=== PATIENT | male | born 1955 | race Caucasian/White ===

== ENCOUNTER 2020-05-04 15:48 | Outpatient (REF) | payer OTHER, SELFPAY ==
--- NOTE | ~2020-05-04 | US_ITS ---
EXAMINATION: US VENOUS WITH DOPPLER UPPER EXTREMITY, LEFT CLINICAL INFORMATION: Pain. History of previous DVT COMPARISON: Ultrasound of the left upper extremity February 2009 TECHNIQUE: Ultrasound of the upper extremity is performed using compression sonography and color and pulse Doppler flow with assessment of augmentation of flow. There is also imaging and Doppler assessment of the jugular and subclavian veins. Spectral analysis with color-flow imaging is performed. FINDINGS: Respiratory variation, normal compression, and augmented flow are noted throughout the upper extremity including the axillary, brachial, cubital, and radial and ulnar veins. There is normal flow in the internal jugular and subclavian veins. There is no visible deep or superficial thrombophlebitis. If the patient's symptoms progress, a followup ultrasound in 5 -7 days might be of value to exclude proximal propagation from a nonvisualized distal arm vein. US/US venous duplex UE LT IMPRESSION: No DVT demonstrated in the left upper extremity.
== END 2020-05-04 15:49 | disposition home or self-care (01) ==
LOC: HO.US 15:48
PROVIDERS: PCP Internal Medicine; Visit Provider Internal Medicine Medical Oncology
DX: I82.622 Acute embolism and thrombosis of deep veins of left upper extremity (principal)
CPT/HCPCS: 93971

== ENCOUNTER 2022-10-03 14:41 | Outpatient (REF) | payer OTHER, SELFPAY ==
--- NOTE | ~2022-10-03 | XR_ITS ---
EXAMINATION: XR KNEE, LEFT CLINICAL INFORMATION: Acute left knee pain COMPARISON: None available. TECHNIQUE: AP and lateral views of the left knee. FINDINGS: Mineralization is normal. There is no fracture or focal destructive lesion. Alignment is normal. There is mild joint space narrowing in the medial compartment without associated arthritic change. A small joint effusion cannot be excluded. There is evidence of edema in the superficial soft tissues surrounding the knee, and there are rounded soft tissue densities in the medial aspect which are nonspecific but could represent varicosities. XR/XR knee LT 2V IMPRESSION: No fracture or malalignment. A small joint effusion cannot be excluded. There is soft tissue edema and nodular densities projected in the medial soft tissue which could represent varicosities or, less likely, soft tissue masses. Clinical correlation is recommended.
== END 2022-10-03 14:42 | disposition home or self-care (01) ==
LOC: HO.XRAY 14:41
PROVIDERS: PCP Internal Medicine; Visit Provider Internal Medicine
DX: M25.562 Pain in left knee (principal)
CPT/HCPCS: 73560

== ENCOUNTER 2023-05-22 09:25 | Outpatient (REF) | payer OTHER, SELFPAY ==
--- NOTE | ~2023-05-22 | XR_ITS ---
EXAMINATION: XR LUMBOSACRAL SPINE CLINICAL INFORMATION: Low back pain COMPARISON: None available. TECHNIQUE: Three views of the lumbosacral spine. FINDINGS: There is slight rotatory curve of the lumbar spine, convex left. There 5 nonrib-bearing lumbar-type vertebral bodies there is mild compression of the superior endplate of L1. The height of the remainder of the lumbar vertebral bodies is well-maintained. There is mild disc space narrowing at L4-L5. The L5-S1 disc space is also narrow. There are large anterior bridging osteophytes at L2-L3 and L4-L5. There are large anterior osteophytes at L3-L4. Marked degenerative facet joint disease is seen at L4-L5 and L5-S1. Surgical clips are seen posteriorly in the left upper back. There is diffuse lucency of most of the sacrum which is of uncertain etiology. Question small lucencies within the L5 vertebral body. XR/XR lumbar spine 2-3V IMPRESSION: 1. Mild compression of the superior endplate of L1. 2. Degenerative disc disease and marked degenerative facet joint disease in the lower lumbar spine. 3. Diffuse lucency of most of the sacrum which is of uncertain etiology. Question small lucencies within the L5 vertebral body. MRI scan could be obtained for further evaluation.
[2023-05-22 15:04] LABS: Estimated Average Glucose 111 mg/dL; Hemoglobin A1C 149.0856 umol/L; Hemoglobin A1c % 5.5 % (<6.0)
[2023-05-22 15:38] LABS: Alanine Aminotransferase 46 U/L (0-40); Alkaline Phosphatase 88 U/L (39-117); Anion Gap 12 (12-20); Aspartate Amino Transferase 23 U/L (5-37); Bilirubin Total 0.4 mg/dL (0.0-1.0); Blood Urea Nitrogen 17 mg/dL (9-16); Calcium 9.1 mg/dL (8.4-10.2); Carbon Dioxide 25 mmol/L (22-29); Chloride 105 mmol/L (96-108); Cholesterol 179 mg/dL (<200); Estimated Glomerular Filt Rate > 60; Glucose Random 72 mg/dL (60-115); HDL Cholesterol 41 mg/dL (>40); LDL Cholesterol Calculated 87 mg/dL (<100); Potassium 4.1 mmol/L (3.3-5.1); Sodium 138 mmol/L (135-145); Total Protein 7.1 g/dL (6.5-8.0); Triglycerides 259 mg/dL (<150)
[2023-05-22 15:56] LABS: TSH reflex Free T4 1.29 uIU/mL (0.32-4.0); Vitamin D 25-OH Total 22.1 ng/mL (>30)
== END 2023-05-22 09:26 | disposition home or self-care (01) ==
LOC: HO.CHCLDS 09:25
PROVIDERS: PCP Internal Medicine; Visit Provider Internal Medicine
DX: E66.01 Morbid (severe) obesity due to excess calories (principal); Z68.37 Body mass index [BMI] 37.0-37.9, adult; E78.5 Hyperlipidemia, unspecified; I10 Essential (primary) hypertension; E55.9 Vitamin D deficiency, unspecified; M54.50 Low back pain, unspecified
CPT/HCPCS: 36415; 72100; 80053; 80061; 82306; 83036; 84443

== ENCOUNTER 2023-08-05 14:35 | Outpatient (AMB) | payer OTHER, SELFPAY ==
--- NOTE | 2023-08-05 14:52 | A.OFFVIS_ITS ---
Vital Signs 08/05/23 14:53 Height 6 ft 2 in Weight 273 lb 5.971 oz BMI 35.1 BP 132/78 Blood Pressure Location Lt brachial Position Sitting Pulse 99 Pulse Source Monitor Intake Visit Reasons: ECD/Dr Mahmood/ diastolic dysfunction Training Representative Required: Yes Training Representative Name: Accompanied by: Spouse Allergies No Known Allergies Allergy (Unverified 10/27/19 17:35) Medication List - Last Reconciled 08/05/23 by Juan Thompson MD amlodipine 5 mg PO DAILY levetiracetam ER 1,500 mg PO BID PRN eccohxffjciy-dphwootk-fuzlyl 1 tab PO DAILY omega-3 fatty acids 1,000 mg PO DAILY torsemide 10 mg PO DAILY vitamin K2 (MK-7) 90 mcg PO DAILY HPI Comments Details: Patient is here for consultation regarding possible congestive heart failure. No clear-cut diagnosis of previous coronary disease/myocardial infarction or cardiomyopathy. Apparently gets intermittent leg swelling and also some shortness of breath. Patient does not speak any [place] but is helping with interpretation. She signed the appropriate forms. Essentially, it seems he has had chronic shortness of breath and leg swelling but they are much more prominent recently. He is supposed to be taking torsemide but taking only half the recommended dose as he otherwise spends a lot of time in the bathroom. No anginal-type chest pains. He has a history of hairy cell leukemia but according to them, completely resolved at this time. [facility] Medical History (Updated 08/05/23 @ 15:29 by Juan Thompson MD) Polycythemia Hairy cell leukemia Fatty tumor Surgical History (Updated 05/10/20 @ 22:40 by Lien Gardner MD) Hx of appendectomy Family History (Updated 05/04/20 @ 15:11 by Sofya Delgado) Mother Hypertension Father Enlarged prostate Sister HX: breast cancer Sister Breast tumor Social History (Updated 08/05/23 @ 15:03 by Fe Moncada) Alcohol intake: current Alcohol intake frequency: holidays/special occasions only Alcohol type: beer Patient Tobacco Use Status: Never used Tobacco Review of Systems Const Denies weakness ENT Denies dizziness Card Denies chest pain, Denies chest pain with activity, Denies syncope, Denies rapid heart rate, Denies pedal edema, Denies edema, Denies leg edema, Denies lightheadedness, Denies palpitations, Reports dyspnea, Denies dyspnea on exertion and Denies orthopnea Resp Denies cough, Reports dyspnea and Denies dyspnea on exertion GI Denies hematochezia and Denies change in stool character Musc Denies abnormal gait, Denies muscle cramps, Denies muscle weakness, Denies numbness, Denies radiating pain into limb and Denies tingling Neuro Denies abnormal gait, Denies dizziness, Denies syncope, Denies numbness, Denies tingling and Denies weakness Endo Denies palpitations Physical Exam Vital Signs: Last Vital Signs Pulse 99 08/05/23 14:53 BP 132/78 08/05/23 14:53 BMI result Body Mass Index 35.1 Const General: comfortable and no acute distress Orientation/consciousness: patient oriented x3 HEENT Other: Unremarkable Head: Yes normal to inspection Neck Neck: Yes normal visual inspection Chest Chest palpation & inspection: normal inspection of the chest Resp Auscultation: clear to auscultation bilaterally Cardio Palpation: normal PMI Heart sounds: S1 normal heart sound present, S2 normal heart sound present, no gallops, no murmurs and no rubs GI Palpation (GI): Soft to palpation Back/Spine/Pelvis Other: unremarkable Skin General skin exam: no rashes or lesions noted Neuro General: patient oriented x3 Extrem Other: 1+ edema b/l General: Yes normal to inspection Psych Mental Status: mental status grossly normal Office Procedures EKG Details: EKG with sinus rhythm at 99/Min; no significant ST-T changes; normal DE and corrected QT. PVC. [id number], Complete Assessment & Plan Assessment & Plan (1) CHF (congestive heart failure): Code(s): I50.9 - Heart failure, unspecified Category: Medical Plan Shortness of breath, leg swelling, obesity. Echocardiogram from 2017 with LVEF of 50-55%; mild diastolic dysfunction and otherwise unremarkable. Considering the current presentation, he needs a repeat echocardiogram. Being ordered. No changes with torsemide for now. Apparently also goes to Nephrology, Dr. Pack and we will get that note. Follow-up in a few weeks' time. Orders: Orders CA echo transthoracic complete Today I50.9 - Heart failure, unspecified Coding Level of Care Code New Pt Level 4 (81582) Diagnoses CHF (congestive heart failure) I50.9 CPT Codes EKG - CPT: 41824-[id number], Complete ([id number])
[2023-08-05 14:53] VITALS: BP 132/78; PULSE 99; BMI 35.1
== END 2023-08-05 15:45 | disposition home or self-care (01) ==
PROVIDERS: PCP Internal Medicine; Visit Provider Internal Medicine
DX: I50.9 Heart failure, unspecified (principal)
CPT/HCPCS: 93010; 99204

== ENCOUNTER → 2023-08-05 14:35 | Outpatient (BNVA) | payer OTHER, SELFPAY | PROVIDERS: PCP Internal Medicine; Visit Provider Internal Medicine | DX: I50.9 Heart failure, unspecified (principal) | CPT/HCPCS: 93005; 99202 ==

== ENCOUNTER → 2023-08-21 12:35 | Outpatient (REF) | payer OTHER, SELFPAY ==
--- NOTE | 2023-08-21 12:39 | CA_ITS ---
Transthoracic Echocardiogram Patient (Last, First, Middle): Calin Jaeger, Gender: Male Date of : 1955 Age: 68 Procedure Date: 08/21/2023 Procedure Type: Transthoracic Echocardiogram Location: OP Height: 193.04 cm Weight: 115.21 kg BSA: 2.45 m2 Heart Rate: bpm BP: 130 / 74 mmHg [employer] Officer: TO Referring MD: Juan Thompson MD Symptoms: I50.9 - Heart failure, unspecified Study Quality: Fair/Contrast Conclusions: - Normal left ventricular cavity size. The left ventricular systolic function is hyperdynamic. The visually estimated ejection fraction is >70%. - Diastolic function is normal for age. - There is mild septal asymmetric hypertrophy. - Mildly increased right ventricular cavity size. There is normal right ventricular systolic function. - There is mild dilatation of the ascending aorta measuring 3.50 cm. Findings Procedure Information Contrast agent, definity, is being given per protocol without apparent complications. Left Ventricle Normal left ventricular cavity size. The left ventricular systolic function is hyperdynamic. The visually estimated ejection fraction is >70%. There is no evidence of regional wall motion abnormalities. Diastolic function is normal for age. There is mild septal asymmetric hypertrophy. Right Ventricle Mildly increased right ventricular cavity size. There is normal right ventricular systolic function. Atria The left atrium is normal in size. The right atrium is normal in size. Aortic Valve There is a normal trileaflet aortic valve. There is no aortic valve stenosis. There is no aortic valve regurgitation. Mitral Valve Normal mitral valve structure and function. There is no mitral valve regurgitation. There is no mitral valve stenosis. Pulmonic Valve The pulmonic valve is normal. There is trace pulmonic valve regurgitation. Tricuspid Valve Normal tricuspid valve structure. There is no tricuspid valve regurgitation. Normal right atrial pressure. There is no evidence of pulmonary hypertension. Great Vessels There is mild dilatation of the ascending aorta measuring 3.50 cm. The visualized portions of the pulmonary artery and branches are normal. Venous The inferior vena cava is normal in size and collapses greater than 50% with inspiration. Pericardium/Pleural There is no evidence of pericardial effusion. Prior Study Comparison Changes noted compared to prior study dated: 03/24/2017. Hyperdynamic LV with normal diastolic function, Mild RV dilation Measurements 2D Linear Measurements IVSd: 1.29 0.6-0.9/0.6-1.0 cm LVIDd: 5.12 3.9-5.3/4.2-5.9 cm LVIDd Index: 2.09 2.4-3.2/2.2-3.1 cm/m2 LVIDs: 3.37 2.0-3.6 cm LVPWd: 0.92 0.7-1.1 cm LA Diam: 3.60 2.7-3.8/3.0-4.0 cm LAIDs Index: 1.47 1.5-2.3 cm/m2 LV Mass: 269.16 67-162/88-224 g LV Mass Index: 109.86 43-95/49-115 g/m2 LVOT Diam: 2.50 3.0+(-)1.3 cm 2D Systolic Function EF 4C: 56.00 >55% Mitral Valve MV Pk E: 0.48 MV PK A: 0.62 MV Decel Time: 147.00 E/A: 0.80 E'Lateral: 7.51 E'Medial: 5.98 E/E' Med: 8.00 E/E' Lat: 6.40 PHT: 43.00 MVA PHT: 5.12 Decel King: 3.27 Aortic Valve AoV Pk Altaf: 1.22 AoV Mn Altaf: 0.86 AoV VTI: 0.21 AoV Pk Grad: 6.00 Aov Mn Grad: 3.00 ANJANA Cont.VTI: 4.11 LVOT LVOT Pk Altaf: 0.93 LVOT Mn Altaf: 0.65 LVOT VTI: 0.18 LVOT Pk Grad: 3.00 LVOT Mn Grad: 2.00 LVOT Diam: 2.50 LVOT Area: 4.91 Diastolic Function MV Pk E: 0.48 MV Pk A: 0.62 E/A: 0.80 E'Medial: 5.98 E/E' Med: 8.00 E' Laterial: 7.51 E/E' Lat: 6.40 Right Ventricle TAPSE (mm): 22.80 TVS' Altaf: 11.40 Tricuspid Valve TR Pk Altaf: 2.06 TR Pk Grad: 17.00 RA Press: 8.00 RVSP: 25.00 Great Vessels Aorta Sinus of Valsalva: 3.65 2.0-3.[address] Ridge: 3.04 1.7-3.4 cm Ao Asc: 3.50 2.1-3.4 cm Updated in Other Vendor System with Status of Final Enrique Wills MD electronically signed on 08/23/2023 1:32:18 PM with status of Final
== END ==
LOC: HO.CARD 12:35
PROVIDERS: PCP Internal Medicine; Visit Provider Internal Medicine
DX: I50.9 Heart failure, unspecified (principal)
CPT/HCPCS: 93306; Q9957

== ENCOUNTER → 2023-08-21 12:39 | Outpatient (BNV) | payer OTHER, SELFPAY | PROVIDERS: PCP Internal Medicine; Visit Provider Internal Medicine Cardiovascular Disease | DX: I42.2 Other hypertrophic cardiomyopathy (principal) | CPT/HCPCS: 93306 ==

== ENCOUNTER → 2023-10-08 11:59 | Outpatient (RCR) | payer OTHER, SELFPAY ==
[2020-05-04 14:54] VITALS: BP 161/80; PULSE 86; RESP 12; TEMP 36.7; O2SAT 94; BMI 32.8
--- NOTE | 2020-05-04 14:56 | PM.HEMONCPN ---
Medical Summary - Medical Summary Date of Service: 05/04/20 Chief complaint: Follow-up for: Hairy cell leukemia. Medical Summary: DIAGNOSES: 1. Hairy cell leukemia. 2. Polycythemia vera. CURRENT THERAPY: 1. Status post 1 cycle of 2-CdA between 09/27/2008 and 12/01/2008. 2. Currently on a regimen of phlebotomies, last phlebotomy was 10/28/2019. Before that was 01/24/2019. Prior to that was 10/29/2018. Interval History Interval history: This is a pleasant 65 year-old gentleman, here for a follow-up visit. He has been feeling quite well. He retired from work 02/15/2020. He has noted some intermittent swelling of his left hand. It goes and down. He has small veins in that arm. He has not had a phlebotomy since October of last year, due to the COVID epidemic. They did not want him to be exposed. He has not had any fever nor cold symptoms. He has not had any temperature drop or fluctuation since 2015 He denies headache no dizziness. No cough nor sputum. No chest pain or trouble with breathing. His energy level is fair. His memory is not that good His is concerned that it could be related to his medications: Keppra and paroxetine. No abdominal pain nausea vomiting heartburn indigestion. His bowels are moving without any gross blood in it. He enjoys a good appetite. His weight is up. He is in good spirits, the rest of the review of systems is unremarkable. Previous history: He had been admitted to [facility] in 2019. He was seen by Neurology there. Review of Systems - Constitutional Reports system reviewed and no additional complaints, except as documented - Eyes Reports system reviewed and no additional complaints, except as documented - ENT Reports system reviewed and no additional complaints, except as documented - Cardiovascular Reports system reviewed and no additional complaints, except as documented - Respiratory Reports no additional respiratory complaints - Gastrointestinal Reports system reviewed and no additional complaints, except as documented - Genitourinary Genitourinary: Reports no additional male genitourinary complaints - Musculoskeletal Reports system reviewed and no additional complaints, except as documented - Integumentary/Breasts Skin/Breast: Reports no additional skin complaints - Neurologic Reports system reviewed and no additional complaints, except as documented - Psychiatric Reports system reviewed and no additional complaints, except as documented - Endocrine Reports no additional endocrine complaints - Hematologic/Lymphatic Reports system reviewed and no additional complaints, except as documented - Allergic/Immunologic Reports system reviewed and no additional complaints, except as documented [facility] Medical History: Medical History (Last Updated 05/04/20 @ 15:07 by Sofya Delgado) Fatty tumor Family History: Family History (Last Updated 05/04/20 @ 15:11 by Sofya Delgado) Mother Hypertension Father Enlarged prostate Sister HX: breast cancer Sister Breast tumor Surgical History: Surgical History (Last Updated 05/04/20 @ 15:07 by Sofya Delgado) Hx of appendectomy Social History: Social History (Last Updated 05/04/20 @ 15:06 by Sofya Delgado) Alcohol History: Alcohol intake: current Alcohol History Details: Alcohol intake frequency: holiday/special occasion Alcohol type: beer Home Medications and Allergies Home Medications Medication Instructions Recorded Confirmed Type aspirin [Aspir-81] 81 mg PO DAILY 05/04/20 05/04/20 History levetiracetam 1.5 tab PO BID 05/04/20 05/04/20 History multivitamin 05/04/20 05/04/20 History Allergies Allergy/AdvReac Type Severity Reaction Status Date / Time No Known Allergies Allergy Unverified 10/27/19 17:35 Exam - Constitutional Present: no acute distress - Routine HEENT Exam Head: Present: normal inspection Eye: Present: normal appearance ENT: Present: mucous membranes moist - Routine Neck Exam Present: full ROM - Routine Respiratory Exam Present: CTAB - Routine Cardiovascular Exam Cardiovascular: Present: RRR, S1, S2 - Routine Abdominal Exam Present: soft, nontender - Routine Extremities Exam Present: nontender - Routine Back/Spine/Pelvis Exam Back/Spine: Present: full ROM - Routine Skin Exam Present: intact - Routine Neurological Exam Present: alert, oriented X3 - Routine Psychiatric Exam Present: normal affect Data - Labs CBC & Chem 7: 05/04/20 14:55 05/04/20 14:55 Progress Note: A/P (1) Hairy cell leukemia Status: Acute Assessment and plan: 65-year-old gentleman with: A history of hairy-cell leukemia. He was treated with 1 cycle of 2 CDA. He went into complete remission. He is clinically asymptomatic. His blood count is in the normal range. No evidence for disease recurrence. PLAN: To continue to follow him along. (2) Polycythemia vera Status: Acute Assessment and plan: 65 year-old gentleman, with history of Polycythemia: This is most likely related to sleep apnea syndrome. He has had a workup for that. He had been on a regimen of intermittent phlebotomies. He used to go every couple months however, more recently he has not gone since January due to the COVID epidemic. Today's blood count was actually in the normal range. PLAN: He is not a candidate for a therapeutic phlebotomy, at this point. He will be going to the blood bank in 3 month's time, to have his blood count checked and undergo a phlebotomy if needed.. He will return here in 6 months for a followup. He will call for any problems prior to that time. I advised him to follow-up with the neurologist regarding his medications. Thank you, CC: Dr. Patel Aiken. He was treated with one dose of 2-CdA, and has remained in remission since then. - Time Spent With Patient Total time spent is greater than 50% in coordination of care (as documented) at patient's floor/unit and/or counseling patient: 25 - 35 minutes
[2020-05-04 15:02] LABS: MANUAL DIFF FLAG NO
[2020-05-04 15:25] LABS: Basophils Percent Auto 0.7 % (0-2); Eosinophils Absolute Auto 0.2 X10*3/uL (0.0-0.4); Hematocrit 43.8 % (42-52); Hemoglobin 15.5 g/dl (14.0-18.0); Imm Gran Abs Auto 0.01 X10*3/uL (0.00-0.03); Imm Gran Pct Auto 0.2 % (0.0-0.4); Lymphocytes Absolute Auto 1.3 X10*3/uL (1.2-4.9); Lymphocytes Percent Auto 23.5 % (20-40); Mean Corpuscular HGB Conc 35.4 g/dl (31.0-36.0); Mean Corpuscular Volume 90.5 fL (80-98); Mean Platelet Volume 9.3 fL (9.4-12.4); Monocytes Absolute Auto 0.6 X10*3/uL (0.1-1.2); Monocytes Percent Auto 11.2 % (2-11); Neutrophils Absolute Auto 3.5 X10*3/uL (2.0-8.3); Neutrophils Percent Auto 61.4 % (45-73); Platelet Count 188 X10*3/uL (160-400); Red Blood Count 4.84 X10*6/uL (4.60-5.80); Red Cell Distribution Width 11.3 % (11.0-16.0); White Blood Count 5.7 X10*3/uL (4.8-10.8)
[2020-05-04 15:46] LABS: Alanine Aminotransferase 26 U/L (0-40); Alkaline Phosphatase 86 U/L (39-117); Anion Gap 14 (12-20); Aspartate Amino Transferase 19 U/L (5-37); Bilirubin Total 0.4 mg/dL (0.0-1.0); Blood Urea Nitrogen 15 mg/dL (9-16); Calcium 8.4 mg/dL (8.4-10.2); Carbon Dioxide 20 mmol/L (22-29); Chloride 101 mmol/L (96-108); Creatinine Clr Calc Pharmacy 110.8; Estimated Glomerular Filt Rate > 60; Glucose Random 111 mg/dL (60-115); Lactate Dehydrogenase 201 U/L (118-273); Potassium 4.3 mmol/L (3.3-5.1); Sodium 131 mmol/L (135-145); Total Protein 6.5 g/dL (6.5-8.0)
--- NOTE | 2020-05-04 16:05 | MHC.HEMONCMA ---
Pt present to f/u on polycythemia. 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 Pt was sent up to radiology for U/S STAT.
== END | disposition home or self-care (01) ==
LOC: HO.ONC 05-04 14:46
PROVIDERS: PCP Internal Medicine; Visit Provider Internal Medicine Medical Oncology
DX: D45 Polycythemia vera (principal); C91.41 Hairy cell leukemia, in remission
CPT/HCPCS: 36415; 80053; 83615; 85025; 99214

== ENCOUNTER 2023-10-22 14:30 | Outpatient (AMB) | payer OTHER, SELFPAY ==
[2023-10-22 14:49] VITALS: BP 118/58; PULSE 108; BMI 35.4
--- NOTE | 2023-10-22 14:49 | A.OFFVIS_ITS ---
Vital Signs 10/22/23 14:49 Height 6 ft 2 in Weight 276 lb 0.3 oz BMI 35.4 BP 118/58 L Blood Pressure Location Lt brachial Position Sitting Pulse 108 H Pulse Source Pulse Oximeter Intake Visit Reasons: 2-3 mth f/up echo Pocket And Pulley Machine Operator Required: No Pocket And Pulley Machine Operator Services: Pocket And Pulley Machine Operator Offered & Declined Pocket And Pulley Machine Operator Name: Radha- will interpret Accompanied by: Spouse Allergies No Known Allergies Allergy (Unverified 10/27/19 17:35) Medication List - Last Reconciled 10/22/23 by Juan Thompson MD amlodipine 5 mg PO DAILY cholecalciferol (vitamin D3) 50 mcg PO DAILY levetiracetam ER 1,500 mg PO BID PRN leqshaqulayq-awqhuyxz-hmsuil 1 tab PO DAILY omega-3 fatty acids 1,000 mg PO DAILY torsemide 10 mg PO DAILY vitamin K2 (MK-7) 90 mcg PO DAILY PRN HPI Comments Details: Patient returns for follow-up. Recently seen in consultation regarding possible congestive heart failure. He does not have any known cardiac issues including myocardial infarction or cardiomyopathy. Intermittent leg swelling and some shortness of breath. He does not speak [place] and is generally helping with interpretation. Unfortunately, patient has gained about 30-40 lb in weight over the last few years and after that, he has been feeling this way. Otherwise, very complicated history. Nephrology note was reviewed from last year. 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 After that, it seems he has been having chronic hyponatremia as well as dependent edema. There was a question of low normal LVEF and diastolic dysfunction. He has been on torsemide prescribed by Nephrology. states that he it interrupting his daily work and hence takes half a tablet in the morning and evening. [facility] Medical History (Updated 10/22/23 @ 15:11 by Juan Thompson MD) Asthma RAQUEL on CPAP Polycythemia Hairy cell leukemia Fatty tumor Surgical History Hx of appendectomy Family History Mother Hypertension Father Enlarged prostate Sister HX: breast cancer Sister Breast tumor Social History Alcohol intake: current Alcohol intake frequency: holidays/special occasions only Alcohol type: beer Patient Tobacco Use Status: Never used Tobacco Review of Systems Const Denies chills, Denies fatigue, Denies fever(s), Denies weight gain and Denies weight loss ENT Denies dizziness Card Denies chest pain, Denies leg edema, Denies lightheadedness, Denies palpitations, Reports dyspnea on exertion, Denies orthopnea and Denies other Resp Denies cough and Reports dyspnea on exertion GI Denies hematochezia and Denies change in stool character Musc Denies abnormal gait, Denies muscle weakness, Denies numbness, Denies radiating pain into limb and Denies tingling Neuro Denies abnormal gait, Denies dizziness, Denies numbness and Denies tingling Endo Denies fatigue and Denies palpitations Physical Exam Vital Signs: Last Vital Signs Pulse 108 H 10/22/23 14:49 BP 118/58 L 10/22/23 14:49 BMI result Body Mass Index 35.4 Const General: comfortable and no acute distress Orientation/consciousness: patient oriented x3 HEENT Other: Unremarkable Head: Yes normal to inspection Neck Neck: Yes normal visual inspection Chest Chest palpation & inspection: normal inspection of the chest Resp Other: Few fine crackles Cardio Palpation: normal PMI Heart sounds: S1 normal heart sound present, S2 normal heart sound present, no gallops, no murmurs and no rubs GI Palpation (GI): Soft to palpation Back/Spine/Pelvis Other: unremarkable Skin General skin exam: no rashes or lesions noted Neuro General: patient oriented x3 Extrem Other: 1+ edema General: Yes normal to inspection Psych Mental Status: mental status grossly normal Assessment & Plan Assessment & Plan (1) CHF (congestive heart failure): Code(s): I50.9 - Heart failure, unspecified Category: Medical (2) RAQUEL on CPAP: Code(s): G47.33 - Obstructive sleep apnea (adult) (pediatric) Category: Medical Plan Essentially morbid obesity with recent weight gain, chronic shortness of breath, leg swelling, history of asthma, obstructive sleep apnea on CPAP. In the recent EKG, underlying rhythm is sinus with nonspecific ST-T changes and isolated PVC. Echocardiogram from 2017 with LVEF of 50-55%; mild diastolic dysfunction and otherwise unremarkable. In the more recent echocardiogram, hyperdynamic LVEF with normal diastolic function and mild septal hypertrophy; mildly increased right ventricular size which could be related to his body habitus and obstructive sleep apnea. Unremarkable valves and no evidence of pulmonary hypertension. IVC described to have normal size/collapsibility. Overall, shortness of breath and leg swelling could be related to weight gain than anything else. There is also some history of asthma per and that could also play a role. With regard to obstructive sleep apnea, on CPAP. Otherwise, no specific medications required at this time. We will also send him to Pulmonary for evaluation. Advised him to keep the Nephrology follow-up. Return to clinic in 6 months. Orders: Orders XR chest 2V Today R06.02 - Shortness of breath Referrals Pulmonology Referral R06.02 - Shortness of breath Coding Level of Care Code Est Pt Level 4 (36122) Diagnoses CHF (congestive heart failure) I50.9 RAQUEL on CPAP G47.33
== END 2023-10-22 15:21 | disposition home or self-care (01) ==
PROVIDERS: PCP Internal Medicine; Visit Provider Internal Medicine
DX: I50.9 Heart failure, unspecified (principal); G47.33 Obstructive sleep apnea (adult) (pediatric)
CPT/HCPCS: 99214

== ENCOUNTER → 2023-10-22 14:30 | Outpatient (BNVA) | payer OTHER, SELFPAY | PROVIDERS: PCP Internal Medicine; Visit Provider Internal Medicine | DX: I11.0 Hypertensive heart disease with heart failure (principal); I50.9 Heart failure, unspecified; G47.33 Obstructive sleep apnea (adult) (pediatric); Z99.89 Dependence on other enabling machines and devices | CPT/HCPCS: 99212 ==

== ENCOUNTER 2023-11-09 14:15 | Outpatient (REF) | payer OTHER, SELFPAY ==
--- NOTE | ~2023-11-09 | XR_ITS ---
EXAMINATION: XR CHEST CLINICAL INFORMATION: R06.02 - Shortness of breath COMPARISON: None. Studies from 2010 are archived. TECHNIQUE: 2 views of the chest were obtained. FINDINGS: The cardiac, hilar, and mediastinal contours are normal. The lungs are clear bilaterally. Minimal linear atelectasis right middle lobe distribution. There is no pneumothorax or pleural effusion. There is no focal osseous or soft tissue abnormality. Mild to moderate degenerative spinal changes noted. XR/XR chest 2V IMPRESSION: No active disease. No change. Electronically signed by: Jasbir Kern MD 01/17/2024 03:41 PM EST
== END 2023-11-09 14:16 | disposition home or self-care (01) ==
LOC: HO.XRAY 14:15
PROVIDERS: PCP Internal Medicine; Referring Provider Internal Medicine; Visit Provider Nurse Practitioner Family
DX: R06.09 Other forms of dyspnea (principal); J45.909 Unspecified asthma, uncomplicated; R06.02 Shortness of breath
CPT/HCPCS: 71046; 99202

== ENCOUNTER 2023-11-09 14:15 | Outpatient (AMB) | payer OTHER, SELFPAY ==
--- NOTE | 2023-11-09 13:42 | MHC.OFFVIS ---
Vital Signs 11/09/23 14:20 Height 6 ft 2 in Weight 272 lb 4.334 oz BMI 35.0 BP 150/88 H Blood Pressure Location Rt brachial Position Sitting Pulse 121 H Pulse Source Pulse Oximeter Pulse Oximetry (%) 94 Oxygen Delivery Method Room Air Intake Visit Reasons: Shortness of breath Allergies No Known Allergies Allergy (Unverified 11/09/23 14:23) HPI HPI Shortness of breath: Details: Calin is a pleasant 68 year old male, former smoker, quit 02/10 ppd with pack year history, with underlying asthma, hyponatremia, seizure disorder, RAQUEL on CPAP and h/o hairy cell leukemia s/p chemo 2007. He was referred by cardiology for pulmonary evaluation. He reports worsening dyspnea on exertion over the last few months. Denies any cough or wheezing. He does attribute symptoms to weight gain, which he is actively making efforts to lose weight and has had improvements in dyspnea with recent recommendation of a fluid restriction. He currently denies any orthopnea, reports mild BLE edema. Prior PFT from 2015 did reveal asthma however he is not maintained on any daily inhalers/albuterol MDI. He denies any pertinent family history. He denies any occupational exposures. He is currently on CPAP therapy with reported good compliance, under the care of [facility] sleep. [facility] Medical History (Updated 11/09/23 @ 20:17 by Ama Mcdaniel NP) Asthma RAQUEL on CPAP Polycythemia Hairy cell leukemia Fatty tumor Surgical History Hx of appendectomy Family History Mother Hypertension Father Enlarged prostate Sister HX: breast cancer Sister Breast tumor Social History Alcohol intake: current Alcohol intake frequency: holidays/special occasions only Alcohol type: beer Patient Tobacco Use Status: Never used Tobacco Review of Systems Const Denies chills, Denies excessive sweating, Denies fever(s), Denies headache(s) and Denies night sweats Eyes Denies dry eyes, Denies irritation and Denies itchy eyes ENT Reports Normal hearing present, Denies headache(s), Denies nasal congestion, Denies nasal discharge, Denies post nasal drip and Denies sore throat Card Denies chest pain, Denies chest pain at rest, Denies chest pain with activity, Denies claudication, Reports dyspnea on exertion, Denies orthopnea and Denies paroxysmal nocturnal dyspnea Resp Denies chest congestion, Denies cough, Denies excessive phlegm production, Denies pain on inspiration, Denies pain with cough, Reports dyspnea on exertion, Denies stridor and Denies wheezing Musc Denies myalgias Neuro Reports Normal hearing present and Denies headache(s) Endo Denies excessive sweating Cam/Lymph Denies lymphadenopathy Aller/Immun Denies itchy eyes, Denies seasonal rhinorrhea and Denies wheezing Physical Exam Vital Signs: Last Vital Signs Pulse 121 H 11/09/23 14:20 BP 150/88 H 11/09/23 14:20 Pulse Ox 94 11/09/23 14:20 Oxygen Delivery Method Room Air 11/09/23 14:20 BMI result Body Mass Index 35.0 Const General: cooperative, healthy appearing, comfortable, no acute distress, well developed and alert Nutritional Appearance: obese Orientation/consciousness: patient oriented x3 Limitations: no limitations HEENT Head: Yes normal to inspection, Yes normocephalic and Yes atraumatic Ears: hearing grossly normal bilaterally and external ears normal Eyes General: appearance normal, both eyes and all related structures Eyelids: Yes eyelids normal Sclerae: sclerae normal EOM: EOMs intact bilaterally Neck Neck: Yes normal visual inspection and Yes no lymphadenopathy Lymphatic: no lymphadenopathy noted Chest Chest palpation & inspection: normal inspection of the chest Resp Effort & Inspection: normal respiratory effort, able to speak in complete sentences, no audible wheezes, no cough, no stridor, not tachypneic, no tripod positioning and no use of accessory muscles Auscultation: clear to auscultation bilaterally Cardio Jugular venous distension: no JVD Rate: regular rate Rhythm: regular rhythm Skin Other: warm, dry General skin exam: no rashes or lesions noted Neuro General: patient oriented x3 Cranial nerves: Yes Normal hearing present Cognition (Neuro): normal cognition Gait exam (Neuro): Normal gait present Extrem Other: 1-2+ nonpitting edema BLE General: Yes normal to inspection, Yes capillary refill normal, Yes no clubbing, cyanosis or edema and Yes no pedal edema Psych Appearance: grossly normal and well kempt Speech and movement: Normal speech and movement present and Clear speech present Affect: normal affect Attitude: cooperative Thought process: Normal thought process present Thought content: Normal thought content present Insight: Good insight present (Psych) Judgement: Good judgement present (Psych) Assessment & Plan Assessment & Plan (1) Asthma: Code(s): J45.909 - Unspecified asthma, uncomplicated Category: Medical (2) Dyspnea on exertion: Code(s): R06.09 - Other forms of dyspnea Category: Medical (3) RAQUEL on CPAP: Code(s): G47.33 - Obstructive sleep apnea (adult) (pediatric) Category: Medical Plan Calin's symptoms are likely multifactorial with pulmonary and obesity/deconditioning etiologies. Will send for PFT to thoroughly assess. Discussed initiating a daily inhaler however patient would like to hold off at this time as his symptoms have slowly improved with current cardiology recommendations of fluid restriction and weight loss. CXR was ordered by cardiology, encouraged to obtain. All questions were answered and patient is in agreement of plan. Will follow up after the PFT to review results or sooner if needed. Orders: Orders PFT pulmonary function test Today R06.09 - Other forms of dyspnea Coding Level of Care Code New Pt Level 4 (37721) Diagnoses Asthma J45.909 Dyspnea on exertion R06.09 RAQUEL on CPAP G47.33
[2023-11-09 14:20] VITALS: BP 150/88; PULSE 121; O2SAT 94; BMI 35.0
== END 2023-11-09 15:11 | disposition home or self-care (01) ==
PROVIDERS: PCP Internal Medicine; Referring Provider Internal Medicine; Visit Provider Nurse Practitioner Family
DX: J45.909 Unspecified asthma, uncomplicated (principal); R06.09 Other forms of dyspnea; G47.33 Obstructive sleep apnea (adult) (pediatric)
CPT/HCPCS: 99204

== ENCOUNTER → 2023-11-09 15:12 | Outpatient (BNV) | payer OTHER, SELFPAY | PROVIDERS: PCP Internal Medicine; Referring Provider Internal Medicine; Visit Provider Radiology Diagnostic Radiology | DX: R06.02 Shortness of breath (principal) | CPT/HCPCS: 71046 ==

== ENCOUNTER 2023-12-22 14:43 | Outpatient (REF) | payer OTHER, SELFPAY ==
--- NOTE | 2023-12-22 14:48 | PFT_ITS ---
Flows: FEV1: 82 % of predicted at 3.02 L FVC: 79 % of predicted at 3.90 L FEV1/FVC: 77 % Bronchodilator response: Absent Volumes: Total lung capacity: 67 % of predicted at 5.47 L Residual volume: 50 % of predicted at 1.43 L Slow vital capacity: 76 % of predicted at 4.05 L Expiratory reserve volume: 18 % of predicted at 0.28 L Diffusion capacity: Normal Impression: Moderate restrictive ventilatory defect with no bronchodilator response. Decreased expiratory reserve volume suggests extrathoracic restriction likely secondary to abdominal obesity. MTDD
== END 2023-12-22 14:44 | disposition home or self-care (01) ==
LOC: HO.RESP 14:43
PROVIDERS: PCP Internal Medicine; Visit Provider Nurse Practitioner Family
DX: R06.09 Other forms of dyspnea (principal)
CPT/HCPCS: 94010; 94640; 94727; 94729

== ENCOUNTER → 2023-12-22 14:48 | Outpatient (BNV) | payer OTHER, SELFPAY | PROVIDERS: PCP Internal Medicine; Visit Provider Internal Medicine Pulmonary Disease | DX: R06.09 Other forms of dyspnea (principal) | CPT/HCPCS: 94060; 94727; 94729 ==

== ENCOUNTER 2024-04-20 14:52 | Outpatient (AMB) | payer MEDICARE, OTHER, SELFPAY ==
--- NOTE | 2024-04-20 14:56 | A.OFFVIS_ITS ---
Vital Signs 04/20/24 14:57 Height 6 ft 2 in Weight 288 lb 12.889 oz BMI 37.1 BP 154/82 H Blood Pressure Location Lt brachial Position Sitting Pulse 99 Intake Visit Reasons: 6m follow up Intake Note: 6 month follow-up feeling good Hostess Party Sales Representative Required: Yes Hostess Party Sales Representative Services: Hostess Party Sales Representative Offered & Declined Engraving Press Operator: Engraving Press Operator Present Accompanied by: Spouse Allergies No Known Allergies Allergy (Unverified 11/09/23 14:23) Medication List - Last Reconciled 04/20/24 by Juan Thompson MD amlodipine 5 mg PO DAILY cholecalciferol (vitamin D3) 50 mcg PO DAILY levetiracetam ER 1,500 mg PO BID omega-3 fatty acids 1,000 mg PO DAILY torsemide 10 mg PO DAILY vitamin K2 (MK-7) 90 mcg PO DAILY PRN HPI Comments Details: Calin returns for follow-up. Originally seen in consultation regarding possible congestive heart failure. He does not speak Albanian and is generally helping with interpretation. Unfortunately, patient has gained a lot of weight weight over the last few years. He has had off and on shortness of breath. Otherwise, very complicated history. Nephrology note was reviewed from last year. Around 2008, he was having altered mental status and some findings on MRI and thought to have had cerebral salt wasting, seizures and hairy cell leukemia. After that, it seems he has been having chronic hyponatremia as well as dependent edema. There was a question of low normal LVEF and diastolic dysfunction. He has been on torsemide prescribed by Nephrology. states that he it interrupting his daily work and hence takes half a tablet in the morning and evening. Since last time, it seems that he has gained even more weight. Dietary indiscretion as well. Has obstructive sleep apnea and using CPAP. Overall, feels just about the same as before. Shortness of breath is not too bothersome and it seems he can get around and do almost all his activities without any major issues. [facility] Medical History (Updated 04/20/24 @ 15:57 by Juan Thompson MD) Asthma RAQUEL on CPAP Polycythemia Hairy cell leukemia Fatty tumor Surgical History Hx of appendectomy Family History Mother Hypertension Father Enlarged prostate Sister HX: breast cancer Sister Breast tumor Social History Alcohol intake: current Alcohol intake frequency: holidays/special occasions only Alcohol type: beer Patient Tobacco Use Status: Never used Tobacco Review of Systems Const Denies chills, Denies fatigue, Denies fever(s), Denies frequent falls, Denies weakness, Denies weight gain and Denies weight loss ENT Denies dizziness Card Denies chest pain, Denies leg edema, Denies lightheadedness, Denies palpitations, Denies dyspnea, Denies dyspnea on exertion, Denies orthopnea and Denies other (loss of consciousness) Resp Denies cough, Denies dyspnea and Denies dyspnea on exertion GI Denies hematochezia and Denies change in stool character Musc Denies abnormal gait, Denies muscle weakness, Denies numbness, Denies radiating pain into limb and Denies tingling Neuro Denies abnormal gait, Denies dizziness, Denies frequent falls, Denies numbness, Denies tingling and Denies weakness Endo Denies fatigue and Denies palpitations Physical Exam Vital Signs: Last Vital Signs Pulse 99 04/20/24 14:57 BP 154/82 H 04/20/24 14:57 BMI result Body Mass Index 37.1 Const General: comfortable and no acute distress Orientation/consciousness: patient oriented x3 HEENT Other: Unremarkable Head: Yes normal to inspection Neck Neck: Yes normal visual inspection Chest Chest palpation & inspection: normal inspection of the chest Resp Auscultation: clear to auscultation bilaterally Cardio Palpation: normal PMI Heart sounds: S1 normal heart sound present, S2 normal heart sound present, no gallops, no murmurs and no rubs GI Palpation (GI): Soft to palpation Back/Spine/Pelvis Other: unremarkable Skin General skin exam: no rashes or lesions noted Neuro General: patient oriented x3 Extrem General: Yes normal to inspection Psych Mental Status: mental status grossly normal Assessment & Plan Assessment & Plan (1) CHF (congestive heart failure): Code(s): I50.9 - Heart failure, unspecified Category: Medical (2) RAQUEL on CPAP: Code(s): G47.33 - Obstructive sleep apnea (adult) (pediatric) Category: Medical (3) Morbid obesity: Code(s): E66.01 - Morbid (severe) obesity due to excess calories Category: Medical Plan Essentially morbid obesity, chronic shortness of breath, leg swelling, history of asthma, obstructive sleep apnea on CPAP. In the recent EKG, underlying rhythm is sinus with nonspecific ST-T changes and isolated PVC. Echocardiogram from 2017 with LVEF of 50-55%; mild diastolic dysfunction and ot herwise unremarkable. In the more recent echocardiogram, hyperdynamic LVEF with normal diastolic function and mild septal hypertrophy; mildly increased right ventricular size which could be related to his body habitus and obstructive sleep apnea. Unremarkable valves and no evidence of pulmonary hypertension. IVC with normal size/collapsibility. PFT's show restrictive ventilatory defect. Decreased expiratory reserve volume from extrathoracic restriction from abdominal obesity. Overall, main recommendation is to lose as much weight as possible and we discussed about this today. That will probably benefit him the most. Blood pressure seems to be stable on amlodipine. Diuretic management per Nephrology. Management of obstructive sleep apnea/CPAP. With regard to follow up, patient's states that they are moving back to [place]. Hence advised him to contact us as needed. Patient Instructions: - Continue nightly use of CPAP to manage obstructive sleep apnea. - Monitor and limit fluid intake to below 1.5 liters. - Maintain dietary changes to support weight management efforts. - Continue to split diuretic dosage as prescribed, taking half in the morning and half in the evening after work. - Report any new or worsening symptoms, particularly related to dyspnea or chest pains. - Seek advice if planning any significant physical activity changes. Coding Level of Care Code Est Pt Level 4 (08306) Complex EM visit Add On G2211 Diagnoses CHF (congestive heart failure) I50.9 RAQUEL on CPAP G47.33 Morbid obesity E66.01
[2024-04-20 14:57] VITALS: BP 154/82; PULSE 99; BMI 37.1
--- OUTSIDE RECORDS SUMMARY | 2024-04-20 17:29 | XMS_ITS | Clinical Summary ---
Author Organization [facility] Address [address] [place] [address] Phone Care Team Providers Care Hydraulic Spinner Name Role Phone TranJaison dimas Primary Care Provider Allergies No known active allergies Medications Multiple Vitamin (multivitamin) capsule Take 1 capsule by mouth 1 (one) time each day Active levETIRAcetam ER 750 MG tablet sustained-relea se 24 hour TAKE TWO TABLETS TWICE DAILY 09/12/2020 Active omega-3 acid ethyl esters (LOVAZA) 1 g capsule Take 1 g by mouth 1 (one) time each day Active amLODIPine (NORVASC) 5 MG tablet Take 1 tablet (5 mg total) by mouth 1 (one) time each day 90 tablet 3 06/10/2023 Active torsemide (DEMADEX) 10 MG tablet TAKE ONE TABLET BY MOUTH ONCE DAILY 90 tablet 3 07/28/2023 Active cholecalciferol (VITAMIN D-3) 50 MCG (2000 UT) tablet Take 2,000 Units by mouth 1 (one) time each day 09/09/2023 Active Active Problems Problem Noted Date Diagnosed Date Obstructive sleep apnea syndrome 10/14/2022 10/14/2022 Diastolic dysfunction 05/21/2020 Localized edema 05/21/2020 Hypertensive disorder 05/18/2020 Hyponatremia 05/18/2020 Hyposmolality and/or hyponatremia 05/18/2020 Seizure 05/18/2020 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/18/2020 Family History Medical History Relation Comments Diabetes Mother Hypertension Mother Relation Status Comments Father Mother Social History Tobacco Use Types Packs/Day Years Used Date Smoking Tobacco: Former Cigarettes Q uit: 02/10/1984 Smokeless Tobacco: Never Alcohol Use Standard Drinks/Week Comments No 0 (1 standard drink = 0.6 oz pur e alcohol) Sex and Gender Information Value Date Recorded Sex Assigned at Not on file Legal Sex Male 5:02 PM EST Gender Identity Not on file Sexual Orientation Not on file Last Filed Vital Signs Vital Sign Reading Time Taken Comments Blood Pressure 139/72 10/01/2023 8:50 AM EDT Pulse 99 10/01/2023 8:50 AM EDT Temperature - - Respiratory Rate - - Oxygen Saturation 96% 10/01/2023 8:50 AM EDT Inhaled Oxygen Concentration - - Weight 126 kg (277 lb 9.6 oz) 10/01/2023 8:50 AM EDT Height 182.9 cm (6') 10/01/2023 8:50 AM EDT Body Mass Index 37.65 10/01/2023 8:50 AM EDT Plan of Treatment Health Maintenance Due Date Last Done Comments Colorectal Cancer Screening: Annual FOBT 2004 Colorectal Cancer Screening: Colonoscopy 2004 Colorectal Cancer Screening: Sigmoidoscopy 2004 Pneumococcal Vaccine: 65+ Ye ars (2 of 2 - PCV) 10/19/2010 10/19/2009 Influenza Vaccine (#1) 2023 11/11/2019 Hepatitis B Vaccine Aged Out No longe r eligible based on patient's age to complete this topic [place] [address] [place] [address] Care Teams Hydraulic Spinner Relationship Specialty Start Date End Date Jaison Tran [address] [place] [address] [place] [id number] PCP - General Internal Medicine 10/01/23
--- OUTSIDE RECORDS SUMMARY | 2024-04-20 17:29 | XMS_ITS | Clinical Summary ---
Author Organization [employer] Address [address] [facility] [address] [place] [address] Care Team Providers Care General Utility Machine Operator Name Role Phone Jaison Choudhary MD Primary Care Prov ider Allergies No known active allergies Medications amLODIPine (Norvasc) 5 MG tablet Take 5 mg by mouth in the morning. Active levETIRAcetam XR (Keppra XR) 750 mg tablet sustained-releas e 24 hour 24 hr tablet TAKE TWO TABLETS TWICE DAILY Active omega-3 acid ethyl esters (Lovaza) 1 g capsule Take 1 g by mouth. Active Multiple Vitamin (multivitamin) capsule Take 1 capsule by mouth. Active torsemide (Demadex) 10 MG tablet Take 10 mg by mouth in the morning. Active Cholecalciferol 50 MCG (1999 UT) tablet dispersible Take 1 tablet by mouth Once per day. 30 tablet 11 09/09/2023 Active Active Problems Problem Noted Date Diagnosed Date Acute bilateral low back pain without sciatica 0 05/21/2023 Assessment & Plan (05/21/2023 12:00 PM EDT): Negative leg raise test, will prescribe flexeril, told to rest, apply ice/heat, tylenol as needed Screening for colon cancer 05/21/2023 Acute pain of left knee 09/29/2022 Assessment & Plan (11/03/2022 11:51 AM EDT): Pain has improved with conservative management, denied swelling, redness/skin color changes or warm skin. Patient will start Physical therapy next week, continue same treatment, call back in case of not improving after finishing PT Assessment & Plan (09/29/2022 4:21 PM EDT): Patient has been having left knee pain for 1-2 months but this past week it has worsened, no erythema, no swelling, denied recent trauma. Will order a xray, told to rest, aply cold packs, continue with tylenol, depending on findings will decide next step. Diastolic dysfunction 05/21/2020 Assessment & Plan (05/21/2023 11:59 AM EDT): Denied active shortness of breath was referred to cardiology Dyslipidemia 07/07/2017 Benign essential hypertension 05/23/2015 Assessment & Plan (09/11/2023 3:33 PM EDT): Controlled on amlodipine, keep bp log, target <140/90, keep low sodium diet Assessment & Plan (05/21/2023 11:58 AM EDT): Controlled, continue amlodipine 5mg Chronic lymphoid leukemia in remission 3 Immunizations Name Administration Dates Next Due Influenza High-dose Quadrivalent Preservative Fr ee 01/17/2022,11/16/2020 Influenza injectable quadrivalent preservative f ree 11/11/2019 Pneumococcal Polysaccharide PPSV23 10/19/2009 TD (adult), 2 Lf tetanus tox oid, preservative free, adsorbed 11/11/2019 Tdap 10/19/2009 Social History Tobacco Use Types Packs/Day Years Used Date Smoking Tobacco: Never Tobacco Cessation:Counseling Given: Not Answered Depression Answer Date Recorded Patient Health Questionnaire-9 Score 0 09/29/2022 Housing Stability Answer Date Recorded What is your housing situation today? I have aidee conner 12/20/[address] you li ve. Do you have problems with any of the following? None of the above 12/20/2022 Food Insecurity Answer Date Recorded Within the past 12 months, y ou worried that your food would run out before you got money to buy more: Never True 12/20/2022 Within the past 12 months,th e food you bought just didn't last and you didn't have enough money to get more: Never True 12/2022 Transportation Answer Date Recorded In the past 12 months, has l ack of transportation kept you from medical appts, meetings, work or from getting things needed for daily living? No 12/20/2022 Utilities Answer Date Recorded In the past 12 months, has t he electric, gas, oil or water company threatened to shut off services in your home? No 12/20/2022 Depression Answer Date Recorded Patient Health Questionnaire-2 Score 0 09/29/2022 Sex and Gender Information Value Date Recorded Sex Assigned at Male 12/09/2021 10:20 AM EDT Legal Sex Male 10:20 AM EDT Gender Identity Male 12/09/2021 10:20 AM EDT Sexual Orientation Straight 12/09/2021 10 :20 AM EDT Last Filed Vital Signs Vital Sign Reading Time Taken Comments Blood Pressure 126/88 09/11/2023 3:32 PM EDT Pulse 96 05/21/2023 8:37 AM EDT Temperature 37.1 ??C (98.7 ??F) 05/21/2023 8:37 AM ED T Respiratory Rate 19 05/21/2023 8:37 AM EDT Oxygen Saturation 97% 05/21/2023 8:37 AM EDT Inhaled Oxygen Concentration - - Weight 127 kg (281 lb) 05/21/2023 8:37 AM EDT Height 185 cm (6' 0.84 ) 05/21/2023 8:37 AM EDT Body Mass Index 37.24 05/21/2023 8:37 AM EDT Plan of Treatment Health Maintenance Due Date Last Done Comments CT Colonography 1955 Colonoscopy 1955 FIT 1955 FOBT 1955 Sigmoidoscopy 1955 Alcohol/Substance Use Screening 1967 Hepatitis C Screening 1973 Zoster Vaccines (1 of 2) 1974 Pneumococcal Vaccine: 50+ Years (2 of 2 - PCV) 10/19/2010 10/19/2009 RSV Patients and Patients Aged 60 years or older (1 - Risk 60-74 years 1-dose series) 2015 Depression Screening 09/30/2023 09/29/2022, 09/29/2022 SDOH Screening 09/30/2023 09/29/2022 COVID-19 Vaccine (4 - 2023-2 5 season) 2023 01/05/2021, 06/23/2020, 06/02/2020 Influenza Vaccine (#1) 2023 2, 11/16/2020, 11/11/2019 Tobacco Screening 09/10/2024 09/11/2023 Colorectal Cancer Screening 06/14/2026 FIT DNA/Cologuard 06/14/2026 06/15/2023 Lipid Panel 05/21/2028 05/22/2023, 02/26/2021, 11/11/2019 DTaP/Tdap/Td Vaccines (3 - T d or Tdap) 11/10/2029 11/11/2019, 10/19/2009 HIB Vaccines Aged Out No longer eligi ble based on patient's age to complete this topic HPV Vaccines Aged Out No longer eligi ble based on patient's age to complete this topic Hepatitis A Vaccines Aged Out No long er eligible based on patient's age to complete this topic Hepatitis B Vaccines Aged Out No long er eligible based on patient's age to complete this topic IPV Vaccines Aged Out No longer eligi ble based on patient's age to complete this topic Meningococcal Vaccine Aged Out No madeline michelle eligible based on patient's age to complete this topic RSV under 20 months Aged Out No longe r eligible based on patient's age to complete this topic Rotavirus Vaccines Aged Out No longer eligible based on patient's age to complete this topic Procedures Procedure Name Priority Date/Time Associated Diagnosis Comments LAB COLOGUARD?? COLON CANCER SCREEN Routine 06/15/2023 2:40 PM EDT Screening for colon cancer LIPID PANEL, STANDARD Routine 05/22/2023 9:27 AM EDT Dyslipidemia from Last 3 Months or Most Recently Relevant to Health Maintenance Results * Cologuard?? colon cancer screening (06/15/2023 2:40 PM EDT) Cologuard Result Negative Negative 06/22/19 5:36 PM EDT [facility] (CLIA #:[id number]) Comment: NEGATIVE TEST RESULT. A negative Cologuard result indicates a low likelihood that a colorectal cancer (CRC) or advanced adenoma (adenomatous polyps with more advanced pre-malignant features) ??is present. The chance that a person with a negative Cologuard test has a colorectal cancer is less than 1 in 1500 (negative predictive value >99.9%) or has an ??advanced adenoma is less than ??5.3% (negative predictive value 94.7%). These data are based on a prospective cross-sectional study of 10,000 individuals at average risk for colorectal cancer who were screened with both Cologuard and colonoscopy. (Barbara Bunch al, N Engl J Med 2014;370(14):1286- 1297) The normal value (reference range) for this assay is negative. COLOGUARD RE-SCREENING RECOMMENDATION: Periodic colorectal cancer screening is an important part of preventive healthcare for asymptomatic individuals at average risk for colorectal cancer. ??Following a negative Cologuard result, the [place] Cancer Society and U.S. Multi-Society Task Force screening guidelines recommend a Cologuard re-screening interval of 3 years. References: [place] [employer] Guideline for Colorectal Cancer Screening: https://www.cancer.org/cancer/vmrsm-lhijfk-kjmwgc/xqahwmckp-lavgycshs-luumaov/ac s-rec ommendations.html.; Wilber PARISI, Trevor GRANGER, Emma CastellanosK, Colorectal Cancer Screening: Recommendations for Physicians and Patients from the U.S. Multi-Society Task Force on Colorectal Cancer Screening , Am J Gastroenterology 2017; 112:4630-4516. TEST DESCRIPTION: Composite algorithmic analysis of stool DNA-biomarkers with hemoglobin immunoassay. ?? Quantitative values of individual biomarkers are not reportable and are not associated with individual biomarker result reference ranges. Cologuard is intended for colorectal cancer screening of adults of either sex, 45 years or older, who are at average-risk for colorectal cancer (CRC). Cologuard has been approved for use by the U.S. FDA. The performance of Cologuard was established in a cross sectional study of average-risk adults aged 50-84. Cologuard performance in patients ages 45 to 49 years was estimated by sub-group analysis of near-age groups. Colonoscopies performed for a positive result may find as the most clinically significant lesion: colorectal cancer [4.0%], advanced adenoma (including sessile serrated polyps greater than or equal to 1cm diameter) [20%] or non- advanced adenoma [31%]; or no colorectal neoplasia [45%]. These estimates are derived from a prospective cross-sectional screening study of 10,000 individuals at average risk for colorectal cancer who were screened with both Cologuard and colonoscopy. (Barbara Aguiar et al, N Engl J Med 2014;370(14):2726-7652.) Cologuard may produce a false negative or false positive result (no colorectal cancer or precancerous polyp present at colonoscopy follow up). A negative Cologuard test result does not guarantee the absence of CRC or advanced adenoma (pre-cancer). The current Cologuard screening interval is every 3 years. ([place] Cancer Society and U.S. Multi-Society Task Force). Cologuard performance data in a 10,000 patient pivotal study using colonoscopy as the reference method can be accessed at the following location: www.[employer]/results. Additional description of the Cologuard test process, warnings and precautions can be found at www.[employer]. Stool specimen (specimen) 06/15/2023 2:40 PM EDT 06/17/2023 11:04 AM EDT Jaison Davison MD LAB MOLECULAR DIAG NOSTICS ORDERABLES Final Result [facility] (CLIA #:[id number]) [address] [place] [address], * (ABNORMAL) Lipid Panel, Standard (05/22/2023 9:27 AM EDT) Triglycerides 259(H) <150 mg/dL [facility] Comment:Desirable Triglyceri de: less than 150 mg/dLBorderline High Triglyceride 150-199 mg/dLHigh Triglyceride: 200-499 mg/dLVery High Triglyceride: greater than or equal to 5OO mg/dL Cholesterol 179 <200 mg/dL [facility] Comment:Desirable Cholestero l: less than 200 mg/dLBorderline High Cholesterol: 200-239 mg/dLHigh Cholesterol: greater than 239 mg/dL LDL Cholesterol Calculated 87 <100 mg/dL [facility] Comment:Desirable LDL: less than 100 mg/dLNear Optimal/Above Optimal LDL: 110- 129 mg/dLBorderline High LDL: 130-159 mg/dLHigh LDL: 160-189 mg/dLVery High LDL: greater than or equal to 190 mg/dL HDL Cholesterol 41 >40 mg/dL [facility] Comment:Desirable HDL: great er than 40 mg/dL Note: This HDL assay may give artificially low results in patients with liver disease. 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
--- OUTSIDE RECORDS SUMMARY | 2024-04-20 17:29 | XMS_ITS | Encounter Summary ---
Author Organization [facility] Address [address] [facility] [address] [place] [address] Phone Care Team Providers Care Air Bag Stripper Name Role Phone Jaison Tran Primary Care Provider Encounter Details Date Type Department Care Team (Late st Contact Info) Description 06/20/2020 Orders Only [facility] [address] [facility] [address] [place] [address] Robbie Peterson MD [phone] [facility] [address] [place] [address] Hypertensive disorder; Hyponatremia; Hyposmolality and/or hyponatremia; Seizure, not otherwise specified (HCC) Social History Tobacco Use Types Packs/Day Years [...] on file Sexual Orientation Not on file COVID-19 Exposure Response Date Recorded In the last month, have you been in contact with someone who was confirmed or suspected to have Coronavirus / COVID-19? No / Unsure 06/20/2020 8:11 AM EDT documented as of this encounter Plan of Treatment Not on file documented as of this encounter Procedures Procedure Name Priority Date/Time Associated Diagnosis Comments RENAL FUNCTION PANEL Routine 06/12/2020 3:29 PM EDT Hypertensive disorder Hyponatremia Hyposmolality and/or hyponatremia Seizure, not otherwise specified (HCC) documented in this encounter Results * (ABNORMAL) Renal Function Panel (06/12/2020 3:29 PM EDT) Pathologist [facility] Glucose 87 (70-99) MG/DL [facility] BUN 30(H) (8-23) MG/DL [facility] Creatinine 1.0 (0.7-1.2) MG/DL [facility] Sodium 142 (133-145) MMOL/L [facility] Potassium 4.3 (3.6-5.2) MMOL/L [facility] Chloride 107 (98-107) MMOL/L [facility] Bicarbonate (CO2) 23 (22-29) MMOL/L [facility] Anion Gap 12 (4-17) [facility] Albumin 4.4 (3.4-4.8) GM/DL [facility] Calcium 8.9 (8.6-10.5) MG/DL [facility] Phosphorus, Serum 3.8 (2.5-4.5) MG/DL [facility] Est GFR Non 84 ML/MIN/1.7 3 M2 [facility] Comment: Creatinine based estimated glomerular filtration rate (eGFR) is calculated using the Chronic Kidney Disease Epidemiology Collaboration (CKD-EPI). The CKD-EPI creatinine equation has not been validated in children (<18 years), women or in some racial or ethnic subgroups other than Caucasians and Americans. EST GFR 97 ML/MIN/1.7 3 M2 [facility] Comment: Creatinine based estimated glomerular filtration rate (eGFR) is calculated using the Chronic Kidney Disease Epidemiology Collaboration (CKD-EPI). The CKD-EPI creatinine equation has not been validated in children (<18 years), women or in some racial or ethnic subgroups other than Caucasians and Americans. Testing performed or reported by [facility], a Service of [facility], [address] [place] [id number] Yari Espinosa MD, Barber Shop Operator Blood (Blood, Venous) 06/12/2020 3:29 PM EDT 06/12/2020 3:31 PM EDT us Robbie Peterson MD LAB BLOOD ORDERABLES Final Re sult [facility] documented in this encounter Visit Diagnoses Diagnosis Hypertensive disorder Hyponatremia Hyposmolality and/or hyponatremia Seizure, not otherwise specified (HCC) documented in this encounter Care Teams Air Bag Stripper Relationship Specialty Start Date End Date Jaison Tran [address] [place] [id number] PCP - General Internal Medicine 10/01/23 documented as of this encounter
--- OUTSIDE RECORDS SUMMARY | 2024-04-20 17:29 | XMS_ITS | Clinical Summary ---
Author Organization [facility] it Address [address] [place] [address] Care Team Providers Care Service Station Console Operator Name Role Phone Unavailable Primary Care Provider Unavailabl e Social History Tobacco Use Types Packs/Day Years Used Date Smoking Tobacco: Never Assessed Sex and Gender Information Value Date Recorded Sex Assigned at Not on file Legal Sex Male 11:08 PM EST Gender Identity Not on file Sexual Orientation Not on file Plan of Treatment Health Maintenance Due Date Last Done Comments DTaP,Tdap,and Td Vaccines (1 - Tdap) 1974 Pneumococcal Vaccine: 50+ Ye ars (1 of 1 - PCV) 2005 Zoster Vaccines (1 of 2) 2005 COVID-19 Vaccine ( - 2023-2 5 season) 2023 Influenza Vaccine (#1) 2023 RSV Immunization Patients 60 + Years Old (1 - 1-dose 75+ series) 2030 HIB Vaccines Aged Out No longer eligi [...] on patient's age to complete this topic MMR Vaccines Aged Out No longer eligi ble based on patient's age to complete this topic Meningococcal ACWY Vaccine Aged Out N o longer eligible based on patient's age to complete this topic Meningococcal B Vacine Aged Out No lo nger eligible based on patient's age to complete this topic RSV Immunization Patients Un farhana 20 months Aged Out No longer eligible b ased on patient's age to complete this topic Varicella Vaccines Aged Out No longer eligible based on patient's age to complete this topic
== END 2024-04-20 16:03 | disposition home or self-care (01) ==
PROVIDERS: PCP Internal Medicine; Visit Provider Internal Medicine
DX: I50.9 Heart failure, unspecified (principal); G47.33 Obstructive sleep apnea (adult) (pediatric); E66.01 Morbid (severe) obesity due to excess calories
CPT/HCPCS: 99214; G2211

== ENCOUNTER → 2024-04-20 14:52 | Outpatient (BNVA) | payer MEDICARE, SELFPAY | PROVIDERS: PCP Internal Medicine; Visit Provider Internal Medicine | DX: I50.9 Heart failure, unspecified (principal); G47.33 Obstructive sleep apnea (adult) (pediatric); E66.01 Morbid (severe) obesity due to excess calories; Z68.37 Body mass index [BMI] 37.0-37.9, adult | CPT/HCPCS: 99212 ==

== ENCOUNTER 2025-01-30 10:17 | Outpatient (REF) | payer MEDICARE, SELFPAY ==
--- NOTE | ~2025-01-30 | XR_ITS ---
EXAMINATION: XR CHEST 2 VIEWS HISTORY: Z87.01 - Personal history of pneumonia (recurrent) COMPARISON: Comparison is made with the prior examination dated 11/09/2023. FINDINGS: PA and lateral views of the chest are submitted. The lungs are expanded and clear. There is no pleural effusion, pneumothorax, or pulmonary vascular congestion. The heart is normal in size. There is degenerative disc disease of the spine. XR/XR chest 2V IMPRESSION: No acute cardiopulmonary abnormality. Electronically signed by: Sam Campos MD 01/30/2025 11:57 AM EST
== END 2025-01-30 10:18 | disposition home or self-care (01) ==
LOC: HO.XRAY 10:17
PROVIDERS: PCP Internal Medicine; Visit Provider Nurse Practitioner Family
DX: G47.33 Obstructive sleep apnea (adult) (pediatric) (principal); J45.909 Unspecified asthma, uncomplicated; R06.09 Other forms of dyspnea; Z87.01 Personal history of pneumonia (recurrent); Z99.89 Dependence on other enabling machines and devices; Z87.891 Personal history of nicotine dependence
CPT/HCPCS: 71046; 99212

== ENCOUNTER 2025-01-30 10:17 | Outpatient (AMB) | payer MEDICARE, SELFPAY ==
[2025-01-30 10:20] VITALS: BP 118/74; PULSE 81; O2SAT 95; BMI 35.4
--- NOTE | 2025-01-30 10:20 | A.OFFVIS_ITS ---
Vital Signs 01/30/25 10:20 Height 6 ft 2 in Weight 275 lb 9.245 oz BMI 35.4 BP 118/74 Blood Pressure Location Rt brachial Position Sitting Pulse 81 Pulse Source Pulse Oximeter Pulse Oximetry (%) 95 Oxygen Delivery Method Room Air Intake Visit Reasons: Asthma Allergies lisinopril Allergy (Verified 01/30/25 10:26) Facial Swelling HPI Comments Details: Calin is a pleasant 68 year old male, former less than 10 pack year smoker, quit 30+ years ago with underlying asthma, RAQUEL on CPAP ([facility]), hyponatremia, seizure disorder, and h/o hairy cell leukemia s/p chemo 2007. He was initially referred by cardiology for pulmonary evaluation for ongoing dyspnea. He was lost to follow up, last evaluated 10/2023 and presents to reestablish care. He reports his breathing is generally okay but notes that he breathes harder when walking outside on windy days. He also experiences shortness of breath with activities such as putting on shoes, likely related to BMI. The patient has a significant recent history of hospitalizations, including an admission in September for pneumonia and hyponatremia. He was also admitted to the ICU in June for high fever, hypernatremia, and altered mental status. A CT scan from June showed possible pneumonia in both lower lobes for which he was treated with IV abx and symptoms resolved. He had a subsequent emergency room visit in October due to an allergic reaction to lisinopril, which caused resulted in angioedema. The patient's remote history from 2008 includes multiple intubations, approximately eight times in one month, following chemotherapy, which led to hypothermia and altered mental status. He continues to experience memory impairment, which his neurologist suggested could be a side effect of Keppra. His family history is positive for asthma in his mother. He is a former smoker who quit in 1985, with a history of smoking half a pack per day for approximately 10-12 years. He has an albuterol inhaler at home which he uses infrequently but reports it was helpful during his last use. Pulmonology History - Reports occasional dyspnea on exertion, especially when walking on windy days or bending over. - Hospitalized for pneumonia in September. - A chest CT in September showed possible bilateral lower lobe pneumonia. - History of multiple intubations (eight times in one month) in 2008 due to hypothermia post-chemotherapy. - Family history of asthma (mother). - Has a prescription for an albuterol inhaler, which he uses infrequently but finds helpful. - Former smoker, quit in 1985, with a history of smoking half a pack per day for 10-12 years. - PFT 12/2023 demonstrated moderate restrictive defect likely secondary to BMI. [facility] Medical History (Updated 01/30/25 @ 10:48 by Ama Mcdaniel NP) Asthma RAQUEL on CPAP Polycythemia Hairy cell leukemia Fatty tumor Surgical History Hx of appendectomy Family History Mother Hypertension Father Enlarged prostate Sister HX: breast cancer Sister Breast tumor Social History Alcohol intake: current Alcohol intake frequency: holidays/special occasions only Alcohol type: beer Patient Tobacco Use Status: Never used Tobacco Review of Systems Const Denies chills, Denies excessive sweating, Denies fever(s), Denies headache(s) and Denies night sweats Eyes Denies dry eyes, Denies irritation and Denies itchy eyes ENT Reports Normal hearing present, Denies headache(s), Denies nasal congestion, Denies nasal discharge, Denies post nasal drip and Denies sore throat Card Denies chest pain, Denies chest pain at rest, Denies chest pain with activity, Denies claudication, Denies leg edema, Denies orthopnea and Denies paroxysmal nocturnal dyspnea Resp Denies chest congestion, Denies cough, Denies excessive phlegm production, Denies pain on inspiration, Denies pain with cough, Denies stridor and Denies wheezing Musc Denies myalgias Neuro Reports Normal hearing present and Denies headache(s) Endo Denies excessive sweating Cam/Lymph Denies lymphadenopathy Aller/Immun Denies itchy eyes, Denies seasonal rhinorrhea and Denies wheezing Physical Exam Vital Signs: Last Vital Signs Pulse 81 01/30/25 10:20 BP 118/74 01/30/25 10:20 Pulse Ox 95 01/30/25 10:20 Oxygen Delivery Method Room Air 01/30/25 10:20 BMI result Body Mass Index 35.4 Const General: cooperative, healthy appearing, comfortable, no acute distress, well developed and alert Nutritional Appearance: obese Orientation/consciousness: patient oriented x3 Limitations: no limitations HEENT Head: Yes normal to inspection, Yes normocephalic and Yes atraumatic Ears: hearing grossly normal bilaterally and external ears normal Eyes General: appearance normal, both eyes and all related structures Eyelids: Yes eyelids normal Sclerae: sclerae normal EOM: EOMs intact bilaterally Neck Neck: Yes normal visual inspection and Yes no lymphadenopathy Lymphatic: no lymphadenopathy noted Chest Chest palpation & inspection: normal inspection of the chest Resp Effort & Inspection: normal respiratory effort, able to speak in complete sentences, no audible wheezes, no cough, no stridor, not tachypneic, no tripod positioning and no use of accessory muscles Auscultation: diminished lung sounds Cardio Jugular venous distension: no JVD Rate: regular rate Rhythm: regular rhythm Skin Other: warm, dry General skin exam: no rashes or lesions noted Neuro General: patient oriented x3 Cranial nerves: Yes Normal hearing present Cognition (Neuro): normal cognition Gait exam (Neuro): Normal gait present Extrem General: Yes normal to inspection, Yes capillary refill normal, Yes no clubbing, cyanosis or edema and Yes no pedal edema Psych Appearance: grossly normal and well kempt Speech and movement: Normal speech and movement present and Clear speech present Affect: normal affect Attitude: cooperative Thought process: Normal thought process present Thought content: Normal thought content present Insight: Good insight present (Psych) Judgement: Good judgement present (Psych) Assessment & Plan Assessment & Plan (1) Asthma: Code(s): J45.909 - Unspecified asthma, uncomplicated Category: Medical (2) Dyspnea on exertion: Code(s): R06.09 - Other forms of dyspnea Category: Medical (3) RAQUEL on CPAP: Code(s): G47.33 - Obstructive sleep apnea (adult) (pediatric) Category: Medical Plan The patient has a recent history of pneumonia confirmed on a chest x-ray from October 05. Physical exam revealed crackles that cleared with a cough, suggesting retained secretions rather than an active consolidation. To ensure complete resolution, an updated chest x-ray will be ordered. Provided him with an incentive spirometer and gave instructions on its use to help expand his lungs, clear secretions, and prevent future pneumonia. The patient reports intermittent dyspnea on exertion however denies any other respiratory symptoms. We addressed his as-needed use of an albuterol inhaler for shortness of breath. Sent a refill for his prescription and counseled him to call if he starts using it daily, as this might necessitate a long-term controller medication. We discussed that if he has trouble with inhaler coordin ation, a nebulizer would be a viable alternative. The patient was encouraged to continue his physical activity, such as walking and using a stationary bicycle, to maintain his lung health. Advised him on return precautions, including worsening dyspnea or productive cough with colored sputum. Recommended he follow up in 3 to 6 months, or sooner if any changes occur. All questions were answered and patient is in agreement of plan. Patient Instructions - Get an updated chest X-ray to make sure the pneumonia has completely gone away. - I have refilled your albuterol inhaler. Use this as needed if you feel short of breath. If you start using it every day, please call our office. - Use the breathing hydroelectric station chief (incentive spirometer). - If you feel like you are getting sick, use the breathing hydroelectric station chief every hour. - Continue with your physical activities like walking and using the bicycle. - Call us if your breathing gets worse, or if you start coughing up yellow, green, or brown mucus. - We will see you back in our office in 3 to 6 months, unless something changes. Patient was informed and verbally consented to the use of an ambient scribe for clinic note documentation during this visit. Orders: Orders XR chest 2V Today Z87.01 - Personal history of pneumonia (recurrent) Medications: New albuterol sulfate 90 mcg/actuation 2 puffs inhalation Q4-6H PRN 1 ea 3RF shortness of breath or wheezing Coding Level of Care Code Est Pt Level 4 (70392) Diagnoses Asthma J45.909 Dyspnea on exertion R06.09 RAQUEL on CPAP G47.33
--- OUTSIDE RECORDS SUMMARY | 2025-01-30 12:28 | XMS_ITS ---
Author Name [facility] Organization Unknown Care Team Organization Name Specialty Phone Email Start Date End Da [facility] 09/28/2024
--- OUTSIDE RECORDS SUMMARY | 2025-01-30 12:28 | XMS_ITS | Encounter Summary ---
Author Organization [employer] Address [address] [facility] [address] [place] [address] Care Team Providers Care Receiving And Processing Supervisor Name Role Phone Jaison Choudhary MD Primary Care Prov ider Encounter Details Date Type Department Care Team (Late st Contact Info) Description 01/30/2025 Orders Only [facility] External Provider, [facility] Social History Tobacco Use Types Packs/Day Years Used Date Smoking Tobacco: Never Depression Answer Date Recorded Patient Health Questionnaire-9 [...] Orientation Straight 12/09/2021 10 :20 AM EDT documented as of this encounter Plan of Treatment Not on file documented as of this encounter Procedures Procedure Name Priority Date/Time Associated Diagnosis Comments XR CHEST 2 VIEWS Routine 01/30/2025 11:1 2 AM EST documented in this encounter Results * XR Chest 2 Views (01/30/2025 11:12 AM EST) Anatomical Region Laterality Modality Chest Radiographic Fransisca ging 01/30/2025 11:1 2 AM EST Narrative 01/30/2025 12:01 PM EST [address] [address] XRay Report Signed Patient: Calin Jaeger MR#: [id number] [birth year] : 1955 Acct:[id number] Age/Sex: 69 / M ADM Date: 01/30/25 Loc: [facility] Attending Dr: Ama Mcdaniel NP Ordering Physician: Ama Mcdaniel NP Date of Service: 01/30/25 Procedure(s): XR chest 2V Accession Number(s): [id number] cc: Jaison Choudhary MD; Ama Mcdaniel NP Reason for Exam: Z87.01 - Personal history of pneumonia (recurrent) EXAMINATION: XR CHEST 2 VIEWS HISTORY: Z87.01 - Personal history of pneumonia (recurrent) COMPARISON: Comparison is made with the prior examination dated 11/09/2023. FINDINGS: PA and lateral views of the chest are submitted. The lungs are expanded and clear. There is no pleural effusion, pneumothorax, or pulmonary vascular congestion. The heart is normal in size. There is degenerative disc disease of the spine. XR/XR chest 2V IMPRESSION: No acute cardiopulmonary abnormality. Electronically signed by: Sam Campos MD 01/30/2025 11:57 AM EST RP Dictated By: Sam Campos MD Signed By: <Electronically signed by Sam Campos MD in OV> 01/30/25 1157 DD/ 1112 TD/TT: 01/30/25 1113 Personnel Worker: Procedure Note Donotuseinterpreter, Image - 01/30/[address] [address] XRay Report Signed Patient: Calin JaegerMR#: [id number] 56 : 1955cct:[id number] Age/Sex: 69 / MADM Date: 01/30/25 Loc: HO.XRAY Attending Dr: Ama Mcdaniel STUDIO DESIGNER Ordering Physician: Ama Mcdaniel NP Date of Service: 01/30/25 Procedure(s): XR chest 2V Accession Number(s): [id number] cc: Jaison Choudhary MD; Ama Mcdaniel NP Reason for Exam: Z87.01 - Personal history of pneumonia (recurrent) EXAMINATION: XR CHEST 2 VIEWS HISTORY: Z87.01 - Personal history of pneumonia (recurrent) COMPARISON: Comparison is made with the prior examination dated 11/09/2023. FINDINGS: PA and lateral views of the chest are submitted. The lungs are expanded and clear. There is no pleural effusion, pneumothorax, or pulmonary vascular congestion. The heart is normal in size. There is degenerative disc disease of the spine. XR/XR chest 2V IMPRESSION: No acute cardiopulmonary abnormality. Electronically signed by: Sam Campos MD 01/30/2025 11:57 AM [facility] Dictated By: Sam Campos MD Signed By: <Electronically signed by Sam Campos MD in OV> 01/30/25 1157 DD/ 1112 TD/TT: 01/30/25 1113 Personnel Worker: [facility] External Provider IMG XR PROCEDURES Edited Result - Final documented in this encounter Visit Diagnoses Not on filedocumented in this encounter Additional Health Concerns Assessment Noted Time PHQ-9 Depression Total Score: 0 09/30/19 23 3:19 PM EDT documented as of this encounter Care Teams Receiving And Processing Supervisor Relationship Specialty Start Date End Date Jaison Choudhary MD [address] [place] [id number] PCP - General Internal Medicine 07/05/19 documented as of this encounter
--- OUTSIDE RECORDS SUMMARY | 2025-01-30 12:28 | XMS_ITS ---
[...] 96 05/21/2023 8:37 AM EDT Temperature 37.1 C (98.7 F) 05/21/2023 8:37 AM EDT Respiratory Rate 19 05/21/2023 8:37 AM EDT Oxygen Saturation 97% 05/21/2023 8:37 AM EDT Inhaled Oxygen Concentration - - Weight 127 kg (281 lb) 05/21/2023 8:37 AM EDT Height 185 cm (6' 0.84 ) 05/21/2023 8:37 AM EDT Body Mass Index 37.24 05/21/2023 8:37 AM EDT Plan of Treatment Health Maintenance Due Date Last Done Comments CT Colonography 1955 Colonoscopy 1955 FIT 1955 Sigmoidoscopy 1955 Alcohol/Substance Use Screening 1967 Hepatitis C Screening 1973 Zoster Vaccines (1 of 2) 1974 Pneumococcal Vaccine: 50+ Years (2 of 2 - PCV) 10/19/2010 10/19/2009 Depression Screening 09/30/2023 09/29/2022, 09/29/2022 SDOH Screening 09/30/2023 09/29/2022 FOBT 06/14/2024 06/15/2023 Tobacco Screening 09/10/2024 09/11/2023 COVID-19 Vaccine (4 - 2024-2 6 season) 2024 01/05/2021, 06/23/2020, 06/02/2020 Influenza Vaccine (#1) 2024 2, 11/16/2020, 11/11/2019 Colorectal Cancer Screening 06/14/2026 FIT DNA/Cologuard 06/14/2026 06/15/2023 Lipid Panel 05/21/2028 05/22/2023, 02/26/2021, 11/11/2019 DTaP/Tdap/Td Vaccines (3 - T d or Tdap) 11/10/2029 11/11/2019, 10/19/2009 RSV Patients and Patients Aged 60 years or older (1 - 1-dose 75+ series) 2030 HIB [...] age to complete this topic Meningococcal B Vaccine Aged Out No l onger eligible based on patient's age to complete [...] VIEWS Routine 01/30/2025 11:1 2 AM EST LAB COLOGUARD COLON CANCER SCREEN Routine 06/15/2023 2:40 PM EDT Screening for colon cancer LIPID PANEL, STANDARD Routine 05/22/2023 9:27 AM EDT Dyslipidemia from Last 3 Months or Most Recently Relevant to Health Maintenance Results * XR Chest 2 Views (01/30/2025 11:12 AM EST) Anatomical Region Laterality Modality Chest Radiographic Fransisca ging 01/30/2025 11:1 2 AM EST Narrative 01/30/2025 12:01 PM EST [address] [address] XRay Report Signed Patient: Calin Jaeger MR#: [id number] 56 : 1955 Acct:[id number] Age/Sex: 69 / M ADM Date: 01/30/25 Loc: HO.XRAY Attending Dr: Ama Mcdaniel NP Ordering Physician: Ama Mcdaniel NP Date of Service: 01/30/25 Procedure(s): XR chest 2V Accession Number(s): [id number] cc: Jaison Choudhary MD; Ama Mcdaniel NP [...] 01/30/25 1157 DD/ 1112 TD/TT: 01/30/25 1113 Assistant Produce Manager: Procedure Note Donotuseinterpreter, Image - 01/30/[address] [address] XRay Report Signed Patient: Calin JaegerMR#: [id number] 56 : 1955cct:[id number] Age/Sex: 69 / MADM Date: 01/30/25 Loc: [facility] Attending Dr: Ama Mcdaniel NP Ordering Physician: Ama Mcdaniel NP Date of Service: 01/30/25 Procedure(s): XR chest 2V Accession Number(s): [id number] cc: Jaison Choudhary MD; Ama Mcdaniel NP Reason for Exam: Z. - Personal history of pneumonia (recurrent) EXAMINATION: XR CHEST 2 VIEWS HISTORY: Z. - Personal history of pneumonia (recurrent) COMPARISON: [...] by: Sam Campos MD 01/30/2025 11:57 AM [facility] Dictated By: Sam Campos MD Signed By: <Electronically signed by Sam Campos MD in OV> 01/30/25 1157 DD/ 1112 TD/TT: 01/30/25 1113 Assistant Produce Manager: [facility] External Provider IMG XR PROCEDURES Edited Result - Final * Cologuard?? colon cancer screening (06/15/2023 2:40 PM EDT) Cologuard Result Negative Negative 06/22/19 5:36 PM EDT [facility] (CLIA #:[id number]) Comment: NEGATIVE TEST RESULT. A negative Cologuard result indicates a low likelihood that a colorectal cancer (CRC) or advanced adenoma (adenomatous polyps with more advanced pre-malignant features) is present. The chance that a person with a negative Cologuard test has a colorectal cancer is less than 1 in 1500 (negative predictive value >99.9%) or has an advanced adenoma is less than 5.3% (negative predictive value 94.7%). These data are based on a prospective cross-sectional study of 10,000 individuals at average risk for colorectal cancer who were screened with both Cologuard and colonoscopy. (Barbara Aguiar et al, N Engl J Med 2014;370(14):2878-0920) The normal value (reference range) for this assay is negative. COLOGUARD RE-SCREENING RECOMMENDATION: Periodic colorectal cancer screening is an important part of preventive healthcare for asymptomatic individuals at average risk for colorectal cancer. Following a negative Cologuard result, the [place] Cancer Society and U.S. Multi-Society Task Force screening guidelines recommend a Cologuard re-screening interval of 3 years. References: [place] [employer] Guideline for Colorectal Cancer Screening: https://www.cancer.org/cancer/rlaps-qktrva-kmoyxo/miyapcftg-frtswdlgq-ynfoalh/ac s-rec ommendations.html.; Wilber PARISI, Trevor GRANGER, Emma CastellanosK, Colorectal Cancer Screening: Recommendations for Physicians and Patients from the U.S. Multi-Society Task Force on Colorectal Cancer Screening , Am J Gastroenterology 2017; 112:6726-9322. TEST DESCRIPTION: Composite algorithmic analysis of stool DNA-biomarkers with hemoglobin immunoassay. Quantitative values of individual biomarkers are not [...] (Barbara Bunch al, N Engl J Med 2014;370(14):2853-8632.) Cologuard may produce a false negative or false positive result (no colorectal cancer or precancerous polyp present at colonoscopy follow up). A negative Cologuard test result does not guarantee the absence of CRC or advanced adenoma (pre-cancer). The current Cologuard screening interval is every 3 years. ([place] Cancer Society and U.S. Multi-Society Task Force). Cologuard performance data in a 10,000 patient pivotal study using colonoscopy as the reference method can be accessed at the following location: www.[facility]/results. Additional description of the Cologuard test process, warnings and precautions can be found at www.[employer]. Stool specimen (specimen) 06/15/2023 2:40 PM EDT 06/17/2023 11:04 AM EDT Jaison Davison MD LAB MOLECULAR DIAG NOSTICS ORDERABLES Final Result [facility] (CLIA #:[id number]) [place] [address], * (ABNORMAL) Lipid Panel, Standard (05/22/2023 9:27 AM EDT) Triglycerides 259(H) <150 mg/dL [facility] Comment:Desirable Triglyceri de: less than 150 mg/dLBorderline High Triglyceride 150-199 mg/dLHigh Triglyceride: 200-499 mg/dLVery High Triglyceride: greater than or equal to 5OO mg/dL Cholesterol 179 <200 mg/dL [facility] Comment:Desirable Cholestero l: less than 200 mg/dLBorderline High Cholesterol: 200-239 mg/dLHigh Cholesterol: greater than 239 mg/dL LDL Cholesterol Calculated 87 <100 mg/dL [facility] Comment:Desirable LDL: less than 100 mg/dLNear Optimal/Above Optimal LDL: 110- 129 mg/dLBorderline High LDL: 130-159 mg/dLHigh LDL: 160-189 mg/dLVery High LDL: greater than or equal to 190 mg/dL HDL Cholesterol 41 >40 mg/dL [facility] Comment:Desirable HDL: great er than 40 mg/dL Note: This HDL assay may give artificially low results in patients with liver disease. Blood Venous blood specimen / Unknown 05/22/2023 9:27 AM EDT 05/22/2023 2:43 PM EDT us Jaison Davison MD LAB BLOOD ORDERABL ES Final Result [facility] [address] [place] [phone] from Last 3 Months or Most Recently Relevant to Health Maintenance Insurance [facility] DIRECT MANDEEP CHAVEZ [id number] Advance Directives Documents on File Type Date Recorded Patient Wet Suit Gluer Expl anation Advance Directives and Livin g Will 05/04/2023 1:31 PM Care Teams Excelsior Cutter Relationship Specialty Start Date End Date Jaison Choudhary MD [address] [place] [address] PCP - General Internal Medicine 07/05/19 Clinical Summary Created on: January 30, 2025 Calin Jaeger : 1955 Sex: Male Author Organization [employer] Address [address] [place] [address] Care Team Providers Care Excelsior Cutter Name Role Phone Jaison Choudhary MD Primary [...] in the morning. 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
--- OUTSIDE RECORDS SUMMARY | 2025-01-30 12:28 | XMS_ITS | Clinical Summary ---
Author Organization [facility] Address [address] [place] [phone] Phone Care Team Providers Care Cotton Wringer Name Role Phone Jaison Tran Primary Care Provider Allergies No known active allergies Medications Multiple Vitamin (multivitamin) capsule Take 1 capsule by mouth 1 (one) time each day Active levETIRAcetam ER 750 MG tablet sustained-relea se 24 hour TAKE TWO TABLETS TWICE DAILY 1 Active omega-3 acid ethyl esters (LOVAZA) 1 g capsule Take 1 g by mouth 1 (one) time each day Active cholecalciferol (VITAMIN D-3) 50 MCG (2000 UT) tablet Take 2,000 Units by mouth 1 (one) time each day 4 Active torsemide (DEMADEX) 10 MG tablet Take 1 tablet (10 mg total) by mouth 1 (one) time each day 90 tablet 3 5 Active Additional Information Patient not taking.Reported on 07/05/2024 albuterol HFA (PROVENTIL HFA;VENTOLIN HFA) 108 (90 Base) MCG/ACT inhaler Inhale 2 puffs if needed for wheezing Active thiamine (VITAMIN B-1) 100 MG tablet Take 100 mg by mouth 1 (one) time each day Active lisinopril 10 MG tablet Take 1 tablet (10 mg total) by mouth 1 (one) time each day 90 tablet 3 5 07/06/19 26 Active amLODIPine (NORVASC) 10 MG tablet Take 1 tablet (10 mg total) by mouth 1 (one) time each day 90 tablet 3 5 07/06/19 26 Active Active Problems Problem Noted Date Diagnosed Date 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 Obstructive sleep apnea syndrome 10/14/2022 10/14/2022 Diastolic dysfunction 05/21/2020 Localized edema 05/21/2020 Hypertensive disorder 05/18/2020 Hyponatremia 05/18/2020 Hyposmolality and/or hyponatremia 05/18/2020 Seizure 05/18/2020 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/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 3 Family History Medical History Relation Comments Diabetes Mother Hypertension Mother Relation Status Comments Father Mother Social History Tobacco Use Types Packs/Day Years Used Date Smoking Tobacco: Former Cigarettes 0 Q uit: 02/10/1984 Smokeless Tobacco: Never Alcohol Use Standard Drinks/Week Comments No 0 (1 standard drink = 0.6 oz pur e alcohol) Sex and Gender Information Value Date Recorded Sex Assigned at Not on file Legal Sex Male 5:02 PM EST Gender Identity Not on file Sexual Orientation Not on file Last Filed Vital Signs Vital Sign Reading Time Taken Comments Blood Pressure 129/70 07/05/2024 10:54 AM EDT Pulse 88 07/05/2024 10:54 AM EDT Temperature - - Respiratory Rate - - Oxygen Saturation 99% 07/05/2024 10:54 AM EDT Inhaled Oxygen Concentration - - Weight 127 kg (281 lb) 07/05/2024 10:54 AM EDT Height 182.9 cm (6') 10/01/2023 8:50 AM EDT Body Mass Index 38.11 10/01/2023 8:50 AM EDT Plan of Treatment Upcoming Encounters Date Type Department Care Team (Late st Contact Info) Description 07/05/2025 8:00 AM EDT Office Visit [facility] [address] [address] Robbie Peterson MD [address] [address] Health Maintenance Due Date Last Done Comments Colorectal Cancer Screening: Annual FOBT 2004 Colorectal Cancer Screening: Colonoscopy 2004 Colorectal Cancer Screening: Sigmoidoscopy 2004 Pneumococcal Vaccine: 50+ Ye ars (2 of 2 - PCV) 10/19/2010 10/19/2009 Influenza Vaccine (#1) 2024 11/11/2019 Pneumococcal Vaccine: Peds ( 0 to 5 Years) and At-Risk Patients (6 to 49 Years) Discontinued 10/19/2009 Hepatitis B Vaccine Aged Out No longe r eligible based on patient's age to complete this topic Insurance [employer] Care Teams Cotton Wringer Relationship Specialty Start Date End Date Jaison Tran [address] [place] [address] [phone] PCP - General Internal Medicine 09/09/23
--- OUTSIDE RECORDS SUMMARY | 2025-01-30 12:28 | XMS_ITS | Clinical Summary ---
Author Organization [facility] ity Address [address] [place] [address] Care Team Providers Care Nut Processing Supervisor Name Role Phone Unavailable Primary Care Provider [...] 2005 Zoster Vaccines (1 of 2) 2005 Depression Screening 02/10/2024 COVID-19 Vaccine (1 - 2024-2 6 season) 2024 Influenza Vaccine (#1) 2024 RSV Immunization Adult Patie nts (1 - 1-dose 75+ series) 2030 HIB [...]
--- OUTSIDE RECORDS SUMMARY | 2025-01-30 12:28 | XMS_ITS | Encounter Summary ---
Author Organization [facility] Address [address] [facility] [address] [place] [address] Phone Care Team Providers Care Apron Man Name Role Phone Jaison Tran Primary Care Provider [phone] Encounter Details Date Type Department Care Team (Late st Contact Info) Description 06/20/2020 Orders Only [facility] [address] [facility] [address] [place] [phone] Robbie Peterson MD [address] [facility] [address] [place] [phone] Hypertensive disorder; Hyponatremia; Hyposmolality and/or hyponatremia; Seizure, [...] as of this encounter Plan of Treatment Upcoming Encounters Date Type Department Care Team (Late st Contact Info) Description 07/05/2025 8:00 AM EDT [facility] Visit [facility] [address] [phone] Robbie Peterson MD [address] [address] documented as of this encounter Procedures Procedure Name Priority Date/Time Associated Diagnosis Comments RENAL FUNCTION PANEL Routine 06/12/2020 3:29 PM EDT Hypertensive disorder Hyponatremia Hyposmolality and/or hyponatremia Seizure, not otherwise specified (HCC) documented in this encounter Results * (ABNORMAL) Renal Function Panel (06/12/2020 3:29 PM EDT) Glucose 87 (70-99) MG/DL [facility] BUN 30(H) (8-23) MG/DL [facility] Creatinine 1.0 (0.7-1.2) MG/DL [facility] Sodium 142 (133-145) MMOL/L [facility] Potassium 4.3 (3.6-5.2) MMOL/L [facility] Chloride 107 (98-107) MMOL/L [facility] Bicarbonate (CO2) 23 (22-29) MMOL/L [facility] Anion Gap 12 (4-17) [facility] Albumin 4.4 (3.4-4.8) GM/DL [facility] Calcium 8.9 (8.6-10.5) MG/DL [facility] Phosphorus, Serum 3.8 (2.5-4.5) MG/DL [facility] Est GFR Non 84 ML/MIN/1.7 3 M2 [facility] Comment: Creatinine based estimated glomerular filtration rate (eGFR) is calculated using the Chronic Kidney Disease Epidemiology Collaboration (CKD-EPI). The CKD-EPI creatinine equation has not been validated in children (<18 years), women or in some racial or ethnic subgroups other than Caucasians and Americans. EST GFR 97 ML/MIN/1.7 3 M2 [facility] Comment: Creatinine based estimated glomerular filtration rate (eGFR) is calculated using the Chronic Kidney Disease Epidemiology Collaboration (CKD-EPI). The CKD-EPI creatinine equation has not been validated in children (<18 years), women or in some racial or ethnic subgroups other than Caucasians and Americans. Testing performed or reported by [facility], a Service of [facility], [address] [place] [id number] Yari Espinosa MD, Neurological Physiotherapist Blood specimen (specimen) Venous blood / Unknown 06/12/2020 3:29 PM EDT 06/12/2020 3:31 PM EDT us Robbie Peterson MD LAB BLOOD ORDERABLES Final Re sult [facility] documented in this encounter Visit Diagnoses Diagnosis Hypertensive disorder Hyponatremia Hyposmolality and/or hyponatremia Seizure, not otherwise specified (HCC) documented in this encounter Care Teams Apron Man Relationship Specialty Start Date End Date Jaison Tran: [phone] [address] [place] [address] PCP - General Internal Medicine 09/09/23 documented as of this encounter
--- OUTSIDE RECORDS SUMMARY | 2025-01-30 12:28 | XMS_ITS | Clinical Summary ---
Author Organization [facility] Address [address] [place] [phone] Phone Care Team Providers Care Hose Inspector Name Role Phone TanmayclauMary Schuler Primary Care Provider Allergies No known active allergies Immunizations Immunization Administration Dates Next Due COVID-19 (Pre-12/01) Pfizer Vaccine, mRNA, PF 01/05/2021,06/23/2020,06/02/2020 Social History Tobacco Use Types Packs/Day Years Used Date Smoking Tobacco: Never Assessed Education Answer Date Recorded Are you interested in more education? Not on nain e 06/28/2024 Are you concerned about learning? Not on file 06/28/2024 No 06/28/2024 No 06/28/2024 Digital Access Answer Date Recorded No 06/28/2024 No 06/28/2024 Reliable internet access at home? Not on file 06/28/2024 Device with a working camera? Not on file Sex and Gender Information Value Date Recorded Sex Assigned at Not on file Legal Sex Male 6:27 PM EST Gender Identity Not on file Sexual Orientation Not on file Plan of Treatment Health Maintenance Due Date Last Done Comments Adult Td,Tdap Booster 1955 LIPID PANEL 1955 DEPRESSION SCREENING 1967 SMOKING Hx and SMOKELESS TOBACCO SCREENING 1968 HEPATITIS C SCREENING 1973 COLOGUARD 2000 COLONOSCOPY 2000 COLORECTAL CANCER SCREENING 2000 FIT TEST 2000 FOBT 2000 SIGMOIDOSCOPY 2000 VIRTUAL COLONOSCOPY 2000 PNEUMOCOCCAL VACCINES (50+ years) (1 of 1 - PCV) 2005 ZOSTER VACCINES (1 of 2) 2005 INFLUENZA VACCINE (#1) 2024 COVID-19 VACCINE (4 - 2024-2 6 season) 2024 01/05/2021, 06/23/2020, 06/02/2020 RSV VACCINE (1 - 1-dose 75+ series) 2030 HEPATITIS A VACCINES Aged Out No long er eligible based on patient's age to complete this topic HIB VACCINES Aged Out No longer eligi ble based on patient's age to complete this topic MENINGOCOCCAL VACCINES (ACWY) Aged Out No longer eligible based on patient's age to complete this topic MENINGOCOCCAL VACCINES (B) Aged Out N o longer eligible based on patient's age to complete this topic Medical Devices Not on file Insurance [employer] Care Teams Hose Inspector Relationship Specialty Start Date End Date Mary Bejarano [address] [place] [address], [address] [place] [address] PCP - General Family Medicine 06/28/24 Additional Source Comments The information contained in this document represents components of the legal health record. It is not the complete legal health record.[facility]
== END 2025-01-30 10:55 | disposition home or self-care (01) ==
LOC: HO.HPS 10:17
PROVIDERS: PCP Internal Medicine; Visit Provider Nurse Practitioner Family
DX: J45.909 Unspecified asthma, uncomplicated (principal); R06.09 Other forms of dyspnea; G47.33 Obstructive sleep apnea (adult) (pediatric)
CPT/HCPCS: 99214

== ENCOUNTER → 2025-01-30 11:04 | Outpatient (BNV) | payer MEDICARE, SELFPAY | PROVIDERS: PCP Internal Medicine; Visit Provider Radiology Diagnostic Radiology | DX: Z87.01 Personal history of pneumonia (recurrent) (principal) | CPT/HCPCS: 71046 ==